=== PATIENT | male | born 1975 | race Two or more races ===

== ENCOUNTER 2023-11-23 21:21 | Emergency (ER) | payer OTHER, SELFPAY ==
[2023-11-23 21:30] VITALS: BP 118/73; PULSE 93; RESP 16; TEMP 36.7; O2SAT 97; BMI 25.4
[2023-11-23 22:19] LABS: MANUAL DIFF FLAG NO
[2023-11-23 22:29] LABS: Basophils Percent Auto 0.5 % (0-2); Eosinophils Absolute Auto 0.1 X10*3/uL (0.0-0.4); Eosinophils Percent Auto 0.9 % (0-4); Hematocrit 45.2 % (42.0-52.0); Hemoglobin 15.7 g/dl (14.0-18.0); Imm Gran Abs Auto 0.01 X10*3/uL (0.00-0.03); Imm Gran Pct Auto 0.1 % (0.0-0.4); Lymphocytes Absolute Auto 1.5 X10*3/uL (1.2-4.9); Lymphocytes Percent Auto 18.8 % (20-40); Mean Corpuscular HGB Conc 34.7 g/dl (31.0-36.0); Mean Corpuscular Hemoglobin 31.6 pg (27.0-33.0); Mean Corpuscular Volume 90.9 fL (80.0-98.0); Monocytes Absolute Auto 0.6 X10*3/uL (0.1-1.2); Monocytes Percent Auto 8.2 % (2-11); Neutrophils Absolute Auto 5.5 x10*3/uL (2.0-8.3); Neutrophils Percent Auto 71.5 % (45-73); Platelet Count 192 X10*3/uL (160-400); Red Blood Count 4.97 X10*6/uL (4.60-5.80); Red Cell Distribution Width 13.3 % (11.0-16.0); White Blood Count 7.7 X10*3/uL (4.8-10.8)
[2023-11-23 22:35] LABS: Anion Gap 13 (12-20); Blood Urea Nitrogen 15 mg/dL (9-16); Calcium 9.2 mg/dL (8.4-10.2); Carbon Dioxide 25 mmol/L (22-29); Chloride 109 mmol/L (96-108); Estimated Glomerular Filt Rate > 60; Glucose Random 92 mg/dL (60-115); Potassium 4.3 mmol/L (3.3-5.1); Sodium 143 mmol/L (135-145)
[2023-11-24 04:34] VITALS: BP 127/56; PULSE 75; RESP 20; TEMP 36.7; O2SAT 98
--- NOTE | 2023-11-24 05:03 | ED_ITS ---
HPI - Abdominal Pain General Chief Complaint: Abdominal Pain Stated Complaint: ? bleeding ulcer Time Seen by Provider: 11/24/23 04:52 Source: patient Mode of arrival: ambulatory Limitations: no limitations History of Present Illness HPI narrative: 47-year-old male with a history of bleeding ulcers who presents emergency department for evaluation of epigastric abdominal pain x2 days. Patient states that he takes Protonix 40 mg daily. He states that he ran out of his Protonix several days ago and is now having abdominal pain. He points to his epigastric area when asked to localize the pain. He states the pain is a sharp constant pain which is worse with eating. He states that he has noted some dark stools with his last dark stool being 4 days prior. He denies any blood per rectum. He denied fever, chills, weakness, nausea, vomiting or diarrhea. Related Data Previous Rx's Medication Instructions Recorded pantoprazole 40 mg tablet,delayed 40 mg PO DAILY #30 tabs 11/24/23 release (Protonix) Allergies Allergy/AdvReac Type Severity Reaction Status Date / Time seafood Allergy Hives Verified 11/23/23 21:33 Review of Systems Review of Systems Yes all other systems are reviewed and are negative [facility] Past Medical History [facility] Narrative: Past medical history: Bleeding ulcers. Social history: He states that he is currently living with his girlfriend who lives in [place] and he is from the [facility]. He does smoke cigarettes. He occasionally drinks alcohol. He denies drug use. Onset Date is defined in the Problem List Problems that require an onset date and time if occurred within 24 hrs of arrival to the ED Aortic Dissection and Rupture; Neurologic impairment; Cardiopulmonary Arrest; Endotracheal Intubation; Insertion or Replacement of Mechanical Circulatory Assist Device Social History Social History Alcohol intake: current Alcohol intake frequency: a few times a week Smoked in Last 30 Days: Yes Use of substances other than those prescribed or required for medical reasons: No Advance Directives: No Advance Directives Information Provided: No Physical Exam ED Vital Signs: Vital Signs - 24 hr 11/23/23 21:30 11/24/23 04:34 Temperature 98.0 F 98.0 F Pulse Rate 93 75 Respiratory Rate 16 20 Blood Pressure 118/73 127/56 L Pulse Oximetry 97 98 Oxygen Delivery Method Room Air Room Air BMI result Body Mass Index 25.4 Initial vital signs were normal. Exam: General: Awake, alert in no distress Head: Normocephalic, atraumatic EENT: PERRL, Lids normal, sclera normal, conjunctiva normal, nose normal , ears normal, throat without erythema or exudates Neck: Supple, no adenopathy, no trachea midline or C-spine tenderness Lung: breath sounds symmetric, no wheezing, rales or rhonchi Chest: symmetric movement, nontender Heart: regular rate and rhythm, normal S1, S2 no murmurs or rubs Abdomen: soft, moderate epigastric tenderness, no rebound, no voluntary or involuntary guarding Back: no vertebral tenderness, no CVAT Extremities: no deformities, moves all extremities symmetrically Neuro: Awake, alert, oriented, normal speech, cranial nerves intact, moves all extremities symmetrically Psych: Pleasant, cooperative Medical Decision Making Medical Decision Making MDM Narrative: 47-year-old male with a history of bleeding ulcers who is on Protonix 40 mg once a day who presents emergency department for evaluation of epigastric abdominal pain x2 days. The patient states he ran out of his Protonix 2 days prior. He has noted dark stools but no bloody stools. He had no other concerning symptoms. Vital signs were normal. Examination did reveal epigastric tenderness. Following evaluation was ordered: CBC BMP 05:09 My interpretation patient's laboratory evaluation is as follows: CBC was normal with an H&H of 15 and 45.2. BNP was normal. Patient's presentation is consistent with dyspepsia/gastritis. He was given Maalox 30 cc, viscous lidocaine 10 cc and 10 cc orally with improvement of his pain. I did refill his prescription for Protonix 40 mg once a day for 1 month with no refills. He was given printed and verbal instructions and discharged home. Differential Diagnosis Differential Diagnoses: The differential diagnosis associated with the presentation includes Differential diagnosis includes was not limited to gastritis, dyspepsia, peptic ulcer disease, upper GI bleed Admission/Observation Consideration of admission/observation: Escalation of care including admission/observation considered Lab Data [facility] Lab Attestation statement: I reviewed the patient's lab results. 11/23/23 22:15 11/23/23 22:15 Labs: Lab Results 11/23/23 Range/Units 22:15 WBC 7.7 (4.8-10.8) X10*3/uL RBC 4.97 (4.60-5.80) X10*6/uL Hgb 15.7 (14.0-18.0) g/dl Hct 45.2 (42.0-52.0) % MCV 90.9 (80.0-98.0) fL MCH 31.6 (27.0-33.0) pg MCHC 34.7 (31.0-36.0) g/dl RDW 13.3 (11.0-16.0) % Plt Count 192 (160-400) X10*3/uL MPV 10.0 (9.4-12.4) fL Immature Gran % (Auto) 0.1 (0.0-0.4) % Neut % (Auto) 71.5 (45-73) % Lymph % (Auto) 18.8 L (20-40) % [place] % (Auto) 8.2 (2-11) % Eos % (Auto) 0.9 (0-4) % Baso % (Auto) 0.5 (0-2) % Lymph # (Auto) 1.5 (1.2-4.9) X10*3/uL [place] # (Auto) 0.6 (0.1-1.2) X10*3/uL Eos # (Auto) 0.1 (0.0-0.4) X10*3/uL Baso # (Auto) 0.0 (0.0-0.2) X10*3/uL Abs Immat Gran (auto) 0.01 (0.00-0.03) X10*3/uL Absolute Neuts (auto) 5.5 (2.0-8.3) x10*3/uL Absolute Nucleated RBC 0.000 (0.0-0.012) X10*3/uL Nucleated RBC % (auto) 0.0 (0.0-0.2) /100WBC Sodium 143 (135-145) mmol/L Potassium 4.3 (3.3-5.1) mmol/L Chloride 109 H (96-108) mmol/L Carbon Dioxide 25 (22-29) mmol/L Anion Gap 13 (12-20) BUN 15 (9-16) mg/dL Creatinine 1.21 (0.5-1.4) mg/dL Estim Creat Clear Calc 77.0 Estimated GFR > 60 Random Glucose 92 (60-115) mg/dL Calcium 9.2 (8.4-10.2) mg/dL Prescription Management I considered prescription management with: Other (Proton pump inhibitor) Discharge Plan Discharge Clinical Impression: Gastritis Qualifiers: Chronicity: acute Gastritis bleeding: without bleeding Patient Disposition: Home, Self-Care Instructions: Gastritis (ED) Additional Instructions: Your blood work was normal. Your not anemic which is reassuring. Your pain is most likely caused by inflammation of your stomach (gastritis) Take Protonix 40 mg once a day for 1 month. Follow-up with your doctor in 2 days. Please return to the emergency department if your symptoms get worse or if you develop any symptoms that are concerning to you. Prescriptions: New pantoprazole [Protonix] 40 mg tablet,delayed release (DR/EC) 40 mg PO DAILY Qty: 30 0RF
[2023-11-24] MEDS: PHENobarb/Hyoscy/Atropine/Scop 10 ML ELIXIR PO (05:38)
[2023-11-24] MEDS: Magnesium Hydrox/Alum Hydrox 30 ML ORAL.SUSP PO (05:39)
[2023-11-24] MEDS: Lidocaine HCl Viscous 2 % 15 ML SOLUTION 10 ML PO (05:39)
[2023-11-24 05:44] VITALS: BP 121/64; PULSE 78; RESP 20; TEMP 36.7; O2SAT 96
== END 2023-11-24 05:51 | disposition home or self-care (01) ==
PROVIDERS: Emergency Provider Emergency Medicine Emergency Medical Services
DX: K29.70 Gastritis, unspecified, without bleeding (principal); R10.13 Epigastric pain; Z79.899 Other long term (current) drug therapy
CPT/HCPCS: 36415; 80048; 85025; 99283; 99284

== ENCOUNTER 2023-11-24 14:47 | Emergency (ER) | payer OTHER, SELFPAY ==
--- NOTE | ~2023-11-24 | XR_ITS ---
EXAMINATION: Right ankle and right foot. CLINICAL INDICATION: Right ankle giving out. TECHNIQUE: Right ankle 3 views and right foot 2 views. FINDINGS: Right foot: There is no visible fracture, dislocation or subluxation. The soft tissues are normal. Right ankle: There is no visible acute fracture or dislocation. The ankle mortise and subtalar joints are normal. There is a small calcaneal heel and retrocalcaneal enthesophytes. XR/XR foot RT min 3V IMPRESSION: Unremarkable right foot exam. Small calcaneal heel and retrocalcaneal enthesophyte.
--- NOTE | ~2023-11-24 | XR_ITS ---
EXAMINATION: Right ankle and right foot. CLINICAL INDICATION: Right ankle giving out. TECHNIQUE: Right ankle 3 views and right foot 2 views. FINDINGS: Right foot: There is no visible fracture, dislocation or subluxation. The soft tissues are normal. Right ankle: There is no visible acute fracture or dislocation. The ankle mortise and subtalar joints are normal. There is a small calcaneal heel and retrocalcaneal enthesophytes. XR/XR ankle RT min 3V IMPRESSION: Unremarkable right foot exam. Small calcaneal heel and retrocalcaneal enthesophyte.
[2023-11-24 15:16] VITALS: BP 104/66; PULSE 94; RESP 18; TEMP 36.8; O2SAT 97; BMI 25.2
--- NOTE | 2023-11-24 15:16 | ED.GENADULT ---
HPI - General Adult General Chief complaint: Extremity Injury, Lower Stated complaint: r ankle pain keeps giving out Time Seen by Provider: 11/24/23 15:28 Source: patient Mode of arrival: ambulatory Limitations: no limitations History of Present Illness HPI narrative: 47 year-old assigned at male presents to emergency department with a complaint of right ankle pain and instability for the last 2 years. He reports that he rolled his ankle this morning prompting his visit. He states his ankle pain is intermittent, worsens with walking, and is relieved by rest. He uses an MORE bandage to stabilize his ankle. He reports that he has seen an orthopedic doctor in [place] for this ankle issue in the past. He reports no traumatic history or falls. The patient denies fever, night sweats, chills, loss of vision, vision changes, double vision, blurry vision, lightheadedness, dizziness, chest pain, palpitations, shortness of breath, trouble breathing, cough, abdominal pain, nausea, vomiting, diarrhea, melena and hematochezia, changes in bowel movements, burning with urination, urinary frequency, and changes in urination. Onset (ago): year(s) (2 years) Location: lower extremity (right ankle) Pain Consistency: intermittent Relieving factors: rest Exacerbating factors: movement Associated symptoms: denies other symptoms Treatments prior to arrival: other (more bandage) Related Data Previous Rx's Medication Instructions Recorded pantoprazole 40 mg tablet,delayed 40 mg PO DAILY #30 tabs 11/24/23 release (Protonix) Allergies Allergy/AdvReac Type Severity Reaction Status Date / Time seafood Allergy Hives Verified 11/24/23 15:15 Review of Systems Constitutional: Constitutional: Reports no additional constitutional complaints, Denies chills, Denies fever(s) and Denies night sweats Eyes: Eyes: Reports no additional eye complaints, Denies blurry vision, Denies change in vision, Denies diplopia, Denies eye discharge, Denies loss of vision and Denies eye pain ENT: Denies dizziness Cardiovascular: Cardiovascular: Reports no additional cardiovascular complaints, Denies chest pain, Denies lightheadedness, Denies Loss of Consciousness and Denies dyspnea Respiratory: Respiratory: Reports no additional respiratory complaints and Denies dyspnea Gastrointestinal: Gastrointestinal: Reports no additional gastrointestinal complaints, Denies abdominal pain, Denies melena, Denies hematochezia, Denies change in bowel habits and Denies change in stool character Genitourinary: Genitourinary: Reports no additional male genitourinary complaints, Denies hematuria, Denies oliguria, Denies difficulty urinating, Denies dysuria, Denies urinary frequency, Denies urinary hesitancy, Denies urinary incontinence and Denies urinary urgency Musculoskeletal: Musculoskeletal: Reports no additional musculoskeletal complaints, Denies numbness and Denies tingling Comments: right ankle pain and instability Neurologic: Denies dizziness, Denies loss of vision, Denies numbness and Denies tingling Psychiatric: Psychiatric: Reports no additional psychiatric complaints Endocrine: Endocrine: Reports no additional endocrine complaints Hematologic/Lymphatic: Hematologic/Lymphatic: Reports no additional hematologic/lymphatic complaints Allergic/Immunologic: Allergic/Immunologic: Reports no additional allergic/immunologic complaints PMFSH Past Medical History Attestation statement: The following information was validated with the patient. Source: old records reviewed and nursing notes reviewed Onset Date is defined in the Problem List Problems that require an onset date and time if occurred within 24 hrs of arrival to the ED Aortic Dissection and Rupture; Neurologic impairment; Cardiopulmonary Arrest; Endotracheal Intubation; Insertion or Replacement of Mechanical Circulatory Assist Device Social History Social History Alcohol intake: current Alcohol intake frequency: a few times a week Advance Directives: No Advance Directives Information Provided: No Physical Exam ED Vital Signs: Vital Signs - 24 hr 11/24/23 15:16 11/24/23 17:02 Temperature 98.2 F 98.1 F Pulse Rate 94 90 Respiratory Rate 18 20 Blood Pressure 104/66 127/68 Pulse Oximetry 97 97 Oxygen Delivery Method Room Air Room Air BMI result Body Mass Index 25.2 Const General: cooperative, no acute distress, alert and awake Nutritional Appearance: well nourished Orientation/consciousness: patient oriented x3 Limitations: no limitations HENMT Head: Yes normal to inspection and Yes atraumatic Ears: hearing grossly normal bilaterally and external ears normal General nose exam: Normal external nose present, no nasal discharge noted and no epistaxis Face and sinus: Yes normal facial exam, No abrasion and No laceration Mouth: Normal oral and palatal mucosa present, no drooling and no muffled voice Eyes General: appearance normal, both eyes and all related structures Periorbital: periorbital findings normal Eyelids: Yes eyelids normal Conjunctivae: conjunctivae normal Pupils: Equal, round and reactive pupils present EOM: EOMs intact bilaterally Neck Neck: Yes normal visual inspection, Yes full ROM and Yes no lymphadenopathy Chest Chest palpation & inspection: normal inspection of the chest Resp Effort & Inspection: normal respiratory effort and able to speak in complete sentences GI Inspection: Yes normal to inspection Neuro General: patient oriented x3 and moves all extremities Cranial nerves: Yes Equal, round and reactive pupils present Cognition (Neuro): normal cognition Motor exam (neuro): 5/5 motor strength present throughout Sensory Exam: Normal double simultaneous stimulation for sensation Coordination: [id number] test normal Extrem General: Yes normal to inspection, Yes full ROM and Yes capillary refill normal Psych Appearance: grossly normal Mental Status: mental status grossly normal Affect: normal affect Attitude: cooperative Thought process: Normal thought process present Thought content: Normal thought content present Insight: Good insight present (Psych) Course Course Course Narrative: RME:?47 yo male here w/ right ankle pain x2-3 years. Reports his ankle began giving out this morning after being discharged from our facility. [place] [facility] with diagnosis of gastritis. Denies numbness/tingling/weakness of extremity. no injury/trauma. reports walking daily. +ambulating w/ steady gait plan for xrays Full HPI, ROS and PE to be performed by the primary ED provider. Procedures Orthopedic Splinting/Casting Injury #1: Side: right Lower Extremity Injury Location: ankle Lower Extremity Immobilizer: boot orthosis Medical Decision Making Medical Decision Making MDM Narrative: Patient is a 47 year old assigned male at with a history of chronic right ankle pain / instability presenting to the emergency department today with right ankle pain. Patient's physical exam was unremarkable. Patient's right foot and ankle x-rays showed no acute process. I explained my physical exam findings as well as all test results to the patient. I answered all questions asked by the patient. Patient's right ankle was placed in a walking boot, without incident. Patient's PMS was intact prior to and after boot placement. I stressed the importance of the patient taking his medication as prescribed. I stressed the importance of the patient following up with his primary care provider and his orthopedic provider. I stressed the importance of the patient returning to the emergency department immediately if his symptoms were to worsen or if he were to develop any dizziness, shortness of breath, difficulty breathing, chest pain, blurry vision, loss of vision, nausea, vomiting, abdominal pain, fever, chills, back pain, or any other complaints. Patient verbalized agreement and understanding with this treatment plan and discharge. Differential Diagnosis Differential Diagnoses: The differential diagnosis associated with the presentation includes Right ankle pain Right ankle instability Right ankle strain Right ankle sprain Admission/Observation Consideration of admission/observation: Escalation of care including admission/observation considered Patient would have been admitted to the hospital had his work up had any findings where hospital admission was appropriate and his clinical presentation warranted hospital admission. Independent Interpretation I performed an independent interpretation of an: Plain X-Ray Interpretation: My interpretation is in agreement with the radiologist's impression of these imaging studies. EXAMINATION: Right ankle and right foot. CLINICAL INDICATION: Right ankle giving out. TECHNIQUE: Right ankle 3 views and right foot 2 views. FINDINGS: Right foot: There is no visible fracture, dislocation or subluxation. The soft tissues are normal. Right ankle: There is no visible acute fracture or dislocation. The ankle mortise and subtalar joints are normal. There is a small calcaneal heel and retrocalcaneal enthesophytes. XR/XR foot RT min 3V IMPRESSION: Unremarkable right foot exam. Small calcaneal heel and retrocalcaneal enthesophyte. Dictated By: Esdras العلي MD Signed By: Electronically signed by Esdras العلي MD 11/24/23 3274 Radiology Impression Discussion of test interpretation with radiology: I have reviewed the radiologist's reading. Discharge Plan Discharge Clinical Impression: Ankle sprain, Ankle instability Patient Disposition: Home, Self-Care Instructions: Ankle Sprain (DC) Additional Instructions: Follow up with your primary care provider and an orthopedic provider. Return to the emergency department immediately if your symptoms worsen or if you develop any dizziness, shortness of breath, difficulty breathing, chest pain, blurry vision, loss of vision, nausea, vomiting, abdominal pain, fever, chills, back pain, or any other complaints. Prescriptions: No Action pantoprazole [Protonix] 40 mg tablet,delayed release (DR/EC) 40 mg PO DAILY Qty: 30 0RF Referrals: [facility] [place] Family Medicine [Provider Group] (Call to establish and follow up with a primary care provider. If you already have a primary care provider, please follow up with them.) [facility] [place] Primary [facility], [facility] [Provider Group] (Call to establish and follow up with a primary care provider. If you already have a primary care provider, please follow up with them.) [facility] [place] Primary [facility],[place] [Provider Group] (Call to establish and follow up with a primary care provider. If you already have a primary care provider, please follow up with them.) [facility] [place] [facility] [Provider Group] (Call to establish and follow up with an orthopedic provider.) Interventions: ED Discharge Assessment Last Done: 11/24/23 17:19 Discharge Date/Time: 11/24/23 17:19 Print Language: Polish
[2023-11-24 17:02] VITALS: BP 127/68; PULSE 90; RESP 20; TEMP 36.7; O2SAT 97
== END 2023-11-24 17:19 | disposition home or self-care (01) ==
PROVIDERS: Emergency Provider Emergency Medicine
DX: S93.401A Sprain of unspecified ligament of right ankle, initial encounter (principal); M25.371 Other instability, right ankle; M25.571 Pain in right ankle and joints of right foot; W01.0XXA Fall on same level from slipping, tripping and stumbling without subsequent striking against object, initial encounter; Y93.9 Activity, unspecified; Y92.9 Unspecified place or not applicable; Y99.9 Unspecified external cause status
CPT/HCPCS: 29515; 73610; 73630; 99283

== ENCOUNTER 2023-11-26 15:54 | Emergency (ER) | payer OTHER, SELFPAY ==
--- NOTE | ~2023-11-26 | XR_ITS ---
EXAMINATION: XR LUMBOSACRAL SPINE CLINICAL INFORMATION: Lumbar spondylosis, tenderness COMPARISON: None available. TECHNIQUE: Three views of the lumbosacral spine. FINDINGS: There are 5 not ribs bearing vertebral bodies and lumbar spine with straightening of lumbar lordosis. Vertebral bodies are well aligned and intervertebral discs are preserved. There is minimal spurring of the endplates of L5 and L4. Soft tissues unremarkable. There is no spondylolysis or listhesis. XR/XR lumbar spine 2-3V IMPRESSION: Minimal degenerative changes
--- NOTE | 2023-11-26 15:59 | ED_ITS ---
HPI - General Adult General Chief complaint: Back Pain/Injury Stated complaint: back spasms right side Time Seen by Provider: 11/26/23 16:51 Source: patient Mode of arrival: ambulatory Limitations: no limitations History of Present Illness HPI narrative: Patient is a 47 year old assigned male at with no reported medical history presenting to the emergency department today with a low back muscle spasm. Patient states that he intermittently has a spasm in his low back that causes pain and this has been happening consistently over the last 4 months. Patient denies any dizziness, lightheadedness, abdominal pain, nausea, vomiting, fever, chills, blurry vision, double vision, loss of vision, chest pain, difficulty breathing, shortness of breath, night sweats, pain with urination, increased urinary frequency, increased urinary urgency, blood in his urine or stool, syncope or a near syncopal episode, recent trauma or falls, bowel incontinence, bladder incontinence, bowel retention, bladder retention, or any other complaints at this time. Onset (ago): month(s) (4) Location: back Severity: mild Severity scale (1-10): 3 Pain Consistency: intermittent Relieving factors: none Exacerbating factors: none Associated symptoms: denies other symptoms Treatments prior to arrival: none Related Data Previous Rx's Medication Instructions Recorded pantoprazole 40 mg tablet,delayed 40 mg PO DAILY #30 tabs 11/24/23 release (Protonix) cyclobenzaprine 5 mg tablet 5 mg PO TID PRN muscle spasm 7 11/26/23 days #21 tabs Allergies Allergy/AdvReac Type Severity Reaction Status Date / Time seafood Allergy Hives Verified 11/26/23 16:37 Review of Systems Constitutional: Constitutional: Reports no additional constitutional complaints, Denies chills, Denies fever(s) and Denies night sweats Eyes: Eyes: Reports no additional eye complaints, Denies blurry vision, Denies change in vision, Denies diplopia, Denies eye discharge, Denies loss of vision and Denies eye pain ENT: Denies dizziness Cardiovascular: Cardiovascular: Reports no additional cardiovascular complaints, Denies chest pain, Denies lightheadedness, Denies Loss of Consciousness and Denies dyspnea Respiratory: Respiratory: Reports no additional respiratory complaints and Denies dyspnea Gastrointestinal: Gastrointestinal: Reports no additional gastrointestinal complaints, Denies abdominal pain, Denies melena, Denies hematochezia, Denies change in bowel habits and Denies change in stool character Genitourinary: Genitourinary: Reports no additional male genitourinary complaints, Denies hematuria, Denies oliguria, Denies difficulty urinating, Denies dysuria, Denies urinary frequency, Denies urinary hesitancy, Denies urinary incontinence and Denies urinary urgency Musculoskeletal: Musculoskeletal: Reports no additional musculoskeletal complaints, Reports back pain (intermittent), Denies numbness and Denies tingling Neurologic: Denies dizziness, Denies loss of vision, Denies numbness and Denies tingling Psychiatric: Psychiatric: Reports no additional psychiatric complaints Endocrine: Endocrine: Reports no additional endocrine complaints Hematologic/Lymphatic: Hematologic/Lymphatic: Reports no additional hematologic/lymphatic complaints Allergic/Immunologic: Allergic/Immunologic: Reports no additional allergic/immunologic complaints PMFSH Past Medical History Attestation statement: The following information was validated with the patient. Source: old records reviewed and nursing notes reviewed Onset Date is defined in the Problem List Problems that require an onset date and time if occurred within 24 hrs of arrival to the ED Aortic Dissection and Rupture; Neurologic impairment; Cardiopulmonary Arrest; Endotracheal Intubation; Insertion or Replacement of Mechanical Circulatory Assist Device Social History Social History Alcohol intake: current Alcohol intake frequency: a few times a week Advance Directives: No Advance Directives Information Provided: No Physical Exam ED Vital Signs: Vital Signs - 24 hr 11/26/23 16:33 Temperature 98.0 F Pulse Rate 65 Respiratory Rate 16 Blood Pressure 132/95 H Pulse Oximetry 98 Oxygen Delivery Method Room Air BMI result Body Mass Index 27.1 Const General: cooperative, no acute distress, alert and awake Nutritional Appearance: well nourished Orientation/consciousness: patient oriented x3 Limitations: no limitations HENMT Head: Yes normal to inspection and Yes atraumatic Ears: hearing grossly normal bilaterally and external ears normal General nose exam: Normal external nose present, no nasal discharge noted and no epistaxis Face and sinus: Yes normal facial exam, No abrasion and No laceration Mouth: Normal oral and palatal mucosa present, no drooling and no muffled voice Eyes General: appearance normal, both eyes and all related structures Periorbital: periorbital findings normal Eyelids: Yes eyelids normal Conjunctivae: conjunctivae normal Pupils: Equal, round and reactive pupils present EOM: EOMs intact bilaterally Neck Neck: Yes normal visual inspection, Yes full ROM and Yes no lymphadenopathy Chest Chest palpation & inspection: normal inspection of the chest Resp Effort & Inspection: normal respiratory effort and able to speak in complete sentences GI Inspection: Yes normal to inspection General: Yes no CVA tenderness Back/Spine/Pelvis Back: no CVA tenderness Cervical Spine: normal cervical lordosis and cervical ROM normal Thoracic/Lumbar Spine: thoracic and lumbar spine normal to inspection Neuro General: patient oriented x3 and moves all extremities Cranial nerves: Yes Equal, round and reactive pupils present Cognition (Neuro): normal cognition Motor exam (neuro): 5/5 motor strength present throughout Sensory Exam: Normal double simultaneous stimulation for sensation Coordination: [id number] test normal Extrem General: Yes normal to inspection, Yes full ROM and Yes capillary refill normal Psych Appearance: grossly normal Mental Status: mental status grossly normal Affect: normal affect Attitude: cooperative Thought process: Normal thought process present Thought content: Normal thought content present Insight: Good insight present (Psych) Course Course Course Narrative: RME: 47 yo male here w/?right low back pain/ spasms x3-4 months, worse at night. 4/10 pain at present. has not been taking anything at home for this. denies injury or trauma. denies bowel/bladder incontinence or retention, saddle anesthesia. denies IVDU. ttp of midline lumbar spine. 2+ patellar dtrs. sensation intact throughout. nv intact distally. plan for xr Full HPI, ROS and PE to be performed by the primary ED provider. Medications Administered Discontinued Medications Generic Name Dose Route Start Last Admin Trade Name Delfino PRN Reason Stop Dose Admin Cyclobenzaprine HCl 5 mg 11/26/23 16:52 11/26/23 16:59 Cyclobenzaprine Hcl 5 Mg Tablet PO 11/26/23 16:53 5 mg ONCE ONE Administration Medical Decision Making Medical Decision Making [facility] Narrative: Patient is a 47 year old assigned male at with no reported medical history presenting to the emergency department today with intermittent low back pain. Patient's physical exam was unremarkable. Patient's lumbar x-ray showed no acute process. I explained my physical exam findings as well as all test results to the patient. I answered all questions asked by the patient. I stressed the importance of the patient taking his medication as prescribed. I stressed the importance of the patient following up with his primary care provider. I s tressed the importance of the patient returning to the emergency department immediately if his symptoms were to worsen or if he were to develop any dizziness, shortness of breath, difficulty breathing, chest pain, blurry vision, loss of vision, nausea, vomiting, abdominal pain, fever, chills, back pain, or any other complaints. Patient verbalized agreement and understanding with this treatment plan and discharge. Differential Diagnosis Differential Diagnoses: The differential diagnosis associated with the presentation includes Back pain Muscle spasm Admission/Observation Consideration of admission/observation: Escalation of care including admission/observation considered Patient would have been admitted to the hospital had his work up had any findings where hospital admission was appropriate and his clinical presentation warranted hospital admission. Independent Interpretation I performed an independent interpretation of an: Plain X-Ray Interpretation: My interpretation is in agreement with the radiologist's impression of this imaging study. EXAMINATION: XR LUMBOSACRAL SPINE CLINICAL INFORMATION: Lumbar spondylosis, tenderness COMPARISON: None available. TECHNIQUE: Three views of the lumbosacral spine. FINDINGS: There are 5 not ribs bearing vertebral bodies and lumbar spine with straightening of lumbar lordosis. Vertebral bodies are well aligned and intervertebral discs are preserved. There is minimal spurring of the endplates of L5 and L4. Soft tissues unremarkable. There is no spondylolysis or listhesis. XR/XR lumbar spine 2-3V IMPRESSION: Minimal degenerative changes Dictated By: Caren Josue MD Signed By: Electronically signed by Caren Josue MD 11/26/23 0661 Radiology Impression Discussion of test interpretation with radiology: I have reviewed the radiologist's reading. Prescription Management I considered prescription management with: Pain Medication (patient prescribed pain medication) Discharge Plan Discharge Clinical Impression: Back spasm Patient Disposition: Home, Self-Care Instructions: Back Pain (ED) Additional Instructions: Follow up with your primary care provider. Return to the emergency department immediately if your symptoms worsen or if you develop any dizziness, shortness of breath, difficulty breathing, chest pain, blurry vision, loss of vision, nausea, vomiting, abdominal pain, fever, chills, back pain, or any other complaints. Prescriptions: New cyclobenzaprine 5 mg tablet 5 mg PO TID PRN (Reason: muscle spasm) 7 Days Qty: 21 0RF No Action pantoprazole [Protonix] 40 mg tablet,delayed release (DR/EC) 40 mg PO DAILY Qty: 30 0RF Referrals: [facility] Family Medicine [Provider Group] (Call to establish and follow up with a primary care provider. If you already have a primary care provider, please follow up with them.) [facility] [Provider Group] (Call to establish and follow up with a primary care provider. If you already have a primary care provider, please follow up with them.) [facility] [Provider Group] (Call to establish and follow up with a primary care provider. If you already have a primary care provider, please follow up with them.) Interventions: ED Discharge Assessment Last Done: 11/26/23 17:07 Discharge Date/Time: 11/26/23 17:08 Print Language: Polish
[2023-11-26 16:33] VITALS: BP 132/95; PULSE 65; RESP 16; TEMP 36.7; O2SAT 98; BMI 27.1
[2023-11-26] MEDS: Cyclobenzaprine HCl 5 MG TABLET PO (16:59)
== END 2023-11-26 17:08 | disposition home or self-care (01) ==
PROVIDERS: Emergency Provider Emergency Medicine Emergency Medical Services
DX: M62.830 Muscle spasm of back (principal); M54.50 Low back pain, unspecified
CPT/HCPCS: 72100; 99283

== ENCOUNTER 2023-11-27 22:26 | Emergency (ER) | payer OTHER, SELFPAY ==
[2023-11-27 22:27] VITALS: BP 120/72; PULSE 83; RESP 16; TEMP 37.2; O2SAT 98; BMI 26.5
[2023-11-27 22:57] LABS: MANUAL DIFF FLAG NO
[2023-11-27 22:58] LABS: Basophils Percent Auto 0.5 % (0-2); Eosinophils Absolute Auto 0.1 X10*3/uL (0.0-0.4); Eosinophils Percent Auto 0.7 % (0-4); Hematocrit 44.8 % (42.0-52.0); Hemoglobin 15.3 g/dl (14.0-18.0); Imm Gran Abs Auto 0.02 X10*3/uL (0.00-0.03); Imm Gran Pct Auto 0.2 % (0.0-0.4); Lymphocytes Absolute Auto 2.4 X10*3/uL (1.2-4.9); Lymphocytes Percent Auto 28.2 % (20-40); Mean Corpuscular HGB Conc 34.2 g/dl (31.0-36.0); Mean Corpuscular Hemoglobin 30.9 pg (27.0-33.0); Mean Corpuscular Volume 90.5 fL (80.0-98.0); Mean Platelet Volume 9.7 fL (9.4-12.4); Monocytes Absolute Auto 0.6 X10*3/uL (0.1-1.2); Monocytes Percent Auto 7.3 % (2-11); Neutrophils Absolute Auto 5.4 x10*3/uL (2.0-8.3); Neutrophils Percent Auto 63.1 % (45-73); Platelet Count 192 X10*3/uL (160-400); Red Blood Count 4.95 X10*6/uL (4.60-5.80); Red Cell Distribution Width 13.1 % (11.0-16.0); White Blood Count 8.5 X10*3/uL (4.8-10.8)
[2023-11-27 23:12] LABS: Alanine Aminotransferase 21 U/L (0-40); Alkaline Phosphatase 58 U/L (39-117); Anion Gap 12 (12-20); Aspartate Amino Transferase 25 U/L (5-37); Bilirubin Total 0.5 mg/dL (0.0-1.0); Blood Urea Nitrogen 16 mg/dL (9-16); Calcium 9.3 mg/dL (8.4-10.2); Carbon Dioxide 30 mmol/L (22-29); Chloride 107 mmol/L (96-108); Creatinine Clr Calc Pharmacy 89.1; Estimated Glomerular Filt Rate > 60; Ethanol < 10 mg/dL; Glucose Random 122 mg/dL (60-115); Sodium 145 mmol/L (135-145); Total Protein 6.6 g/dL (6.5-8.0)
--- NOTE | 2023-11-28 00:37 | PC.NURSE ---
pt not in waiting area at this time.
--- NOTE | 2023-11-28 00:48 | PC.NURSE ---
pt denies si or hi, pt states he just wants to talk with someone due to its the anniversary of a loved one who years ago.
[2023-11-28 01:41] VITALS: BP 101/68; PULSE 67; RESP 16; TEMP 36.6; O2SAT 97
--- NOTE | 2023-11-28 01:43 | MHC.EDTECH ---
This pct just assumed care of Patient ,Pt was meter changes records clerk into (green gown and blue pants ) ,vitals taken ,Patient belongings are locked up in Pod locker # 4 ,Patient had 2 knifes that are locked up in Security .
--- NOTE | 2023-11-28 03:02 | MHC.EDTECH ---
Patient not able to give urine sample at this time .
[2023-11-28 04:00] VITALS: BP 103/61; PULSE 64; RESP 16; TEMP 36.8; O2SAT 97
--- NOTE | 2023-11-28 04:58 | PC.NURSE ---
Patient is alert and oriented x3, VSS. Patient requested and provided a cell phone to call his girlfriend. Patient reports chronic generalized pain d /t muscle spasms. Patient also endorses pain in right foot. Patient wears walking boot to right ankle for support and pain management. Patient denies SI//HI, not in acute distress. Medication reconciliation compelled, call hendricks within patient's reach.
--- NOTE | 2023-11-28 05:07 | MHC.EDTECH ---
Patient woke up asked to use a Phone to call his ,Fluids offer ,drank 240 ml cranberry juice ,Patient said he not able to give urine sample at this time .
--- NOTE | 2023-11-28 05:16 | ED_ITS ---
HPI - General Adult General Chief complaint: Psychiatric Symptoms Stated complaint: crisis Time Seen by Provider: 11/28/23 02:23 History of Present Illness HPI narrative: The patient is a 47-year-old male who says he has only been in this area for a very brief period of time. He is here because of his fiancee. The patient says that he is originally from [place] although he has lived on [address]. He says he does not know [place]. The patient has had 3 emergency room visits in the last 4 days prior to this visit. The patient was seen here on FridayNovember 24 complaining of abdominal pain that he attributed to not having his pantoprazole medication. He was prescribed pantoprazole. He returned the same day complaining of worsening chronic right ankle pain. He was given an orthopedic boot. He then returned on FridayNovember 26 complaining of low back pain and was prescribed cyclobenzaprine. Tonight the patient came to the emergency room because he was apparently very emotional at home. He says that he thinks a lot about his brother who was shot and murdered 3 years ago. He is very upset that the person who was convicted of the murder was given only a 10 year sentence. He has been feeling emotional and angry and tearful. The patient has been psychiatrically hospitalized in the past. He says that he has not certain when he was last hospitalized but he believes that he was sent to a psychiatric hospital from the emergency room at [facility] within the last couple of years. He says he does not currently take any psychiatric medications. The patient denies having done anything to harm himself. He feels extremely sad however. Related Data Previous Rx's Medication Instructions Recorded pantoprazole 40 mg tablet,delayed 40 mg PO DAILY #30 tabs 11/24/23 release (Protonix) cyclobenzaprine 5 mg tablet 5 mg PO TID PRN muscle spasm 7 11/26/23 days #21 tabs Allergies Allergy/AdvReac Type Severity Reaction Status Date / Time seafood Allergy Hives Verified 11/27/23 22:34 Review of Systems 2 Review of Systems: Yes all other systems are reviewed and are negative [facility] Social History Social History Alcohol intake: current Alcohol intake frequency: holidays/special occasions only Alcohol type: beer, wine and hard liquor Smoked in Last 30 Days: Yes Use of substances other than those prescribed or required for medical reasons: No Advance Directives: No Advance Directives Information Provided: No Physical Exam ED Vital Signs: Vital Signs - 24 hr 11/27/23 22:27 11/28/23 01:41 11/28/23 04:00 Temperature 98.9 F 97.8 F 98.2 F Pulse Rate 83 67 64 Respiratory Rate 16 16 16 Blood Pressure 120/72 101/68 103/61 Pulse Oximetry 98 97 97 Oxygen Delivery Method Room Air Room Air Room Air 11/28/23 05:24 Temperature 97.9 F Pulse Rate 60 Respiratory Rate 16 Blood Pressure 100/62 Pulse Oximetry 96 Oxygen Delivery Method Room Air BMI result Body Mass Index 26.5 Const Other: The patient was awake and alert. He was talkative and spoke at great length about the murder of his brother. He did not seem in acute distress or acutely medically ill. HENMT Other: The face is symmetrical. ?Mucous membranes moist. Eyes Other: Pupils are round equal, conjunctivae are clear, extraocular movements intact Neck Neck: Yes no JVD Resp Effort & Inspection: normal respiratory effort Auscultation: clear to auscultation bilaterally Cardio Rate: regular rate Rhythm: regular rhythm Heart sounds: S1 normal heart sound present and S2 normal heart sound present GI Other: Abdomen is flat, soft, and nontender Skin Other: Skin is dry and unremarkable Neuro Other: Patient is awake and alert. Speech is clear. Face is symmetrical. Eye movements normal. Moving his extremities normally. Night. Extrem Other: The patient is wearing an orthopedic boot on his foot and lower leg Psych Other: The patient perseverated about his brother's and other stressors of his life. Medical Decision Making Medical Decision Making MDM Narrative: The patient is a 47-year-old male who presents primarily for emotional complaints. He is new in this area and feels out of place. He also perseverates a great deal about the murder of his brother 3 years ago. He presented voluntarily and is requesting to speak with crisis. He seems medically clear for a crisis evaluation. He will be signed out to the oncoming emergency team at change of shift this morning pending a crisis evaluation. Lab Data 11/27/23 22:54 11/27/23 22:54 Labs: Lab Results 11/27/23 Range/Units 22:54 WBC 8.5 (4.8-10.8) X10*3/uL RBC 4.95 (4.60-5.80) X10*6/uL Hgb 15.3 (14.0-18.0) g/dl Hct 44.8 (42.0-52.0) % MCV 90.5 (80.0-98.0) fL MCH 30.9 (27.0-33.0) pg MCHC 34.2 (31.0-36.0) g/dl RDW 13.1 (11.0-16.0) % Plt Count 192 (160-400) X10*3/uL MPV 9.7 (9.4-12.4) fL Immature Gran % (Auto) 0.2 (0.0-0.4) % Neut % (Auto) 63.1 (45-73) % Lymph % (Auto) 28.2 (20-40) % Meeker % (Auto) 7.3 (2-11) % Eos % (Auto) 0.7 (0-4) % Baso % (Auto) 0.5 (0-2) % Lymph # (Auto) 2.4 (1.2-4.9) X10*3/uL Meeker # (Auto) 0.6 (0.1-1.2) X10*3/uL Eos # (Auto) 0.1 (0.0-0.4) X10*3/uL Baso # (Auto) 0.0 (0.0-0.2) X10*3/uL Abs Immat Gran (auto) 0.02 (0.00-0.03) X10*3/uL Absolute Neuts (auto) 5.4 (2.0-8.3) x10*3/uL Absolute Nucleated RBC 0.000 (0.0-0.012) X10*3/uL Nucleated RBC % (auto) 0.0 (0.0-0.2) /100WBC Sodium 145 (135-145) mmol/L Potassium 4.0 (3.3-5.1) mmol/L Chloride 107 (96-108) mmol/L Carbon Dioxide 30 H (22-29) mmol/L Anion Gap 12 (12-20) BUN 16 (9-16) mg/dL Creatinine 1.08 (0.5-1.4) mg/dL Estim Creat Clear Calc 89.1 Estimated GFR > 60 Random Glucose 122 H (60-115) mg/dL Calcium 9.3 (8.4-10.2) mg/dL Total Bilirubin 0.5 (0.0-1.0) mg/dL AST 25 (5-37) U/L ALT 21 (0-40) U/L Alkaline Phosphatase 58 (39-117) U/L Total Protein 6.6 (6.5-8.0) g/dL Albumin 4.0 (3.5-5.0) g/dL Ethyl Alcohol < 10 mg/dL Discharge Plan Discharge Clinical Impression: Depression Patient Disposition: Still a Patient Prescriptions: No Action pantoprazole [Protonix] 40 mg tablet,delayed release (DR/EC) 40 mg PO DAILY Qty: 30 0RF cyclobenzaprine 5 mg tablet 5 mg PO TID PRN (Reason: muscle spasm) 7 Days Qty: 21 0RF Interventions: Wilkin-Suicide Risk Severity Scale Last Done: 11/28/23 01:30
[2023-11-28 05:24] VITALS: BP 100/62; PULSE 60; RESP 16; TEMP 36.6; O2SAT 96
--- NOTE | 2023-11-28 07:47 | PC.NURSE ---
assumed care of pt at 0700. pt a&o x4, pleasant, calm, and cooperative. pt appears to be anxious this morning, sts that he is upset about his brother that was killed 3 years ago. pt sts he has a lot going on in his life right now. pt denies SI/HI. ate breakfast but asking for more food. sts the tray was a tease . call hendricks within reach. rr even/unlabored. plan of care ongoing.
[2023-11-28 09:36] LABS: Amphetamine Screen Urine Not Detected (Not Detect); Barbiturates, Urine POSITIVE (Not Detect); Benzodiazepines Screen Urine Not Detected (Not Detect); Cannabinoid Screen Urine Not Detected (Not Detect); Cocaine Screen Urine Not Detected (Not Detect); Fentanyl, urine Not Detected (Not Detect); Opiate Screen Urine Not Detected (Not Detect); Phencyclidine Screen Urine Not Detected (Not Detect)
--- NOTE | 2023-11-28 10:50 | PC.NURSE ---
Moved to 6H, 1:[address], denies pain or discomfort. at bedside
--- NOTE | 2023-11-28 12:27 | PC.NURSE ---
Patient requesting to speak to care team, stating that he think hes wants to leave, Stating he needs to smoke and is hungry. Offered food/nicotine patch, patient declined stating he doesn't want to stop smoking. Care team called stating they will come speak to patient
--- NOTE | 2023-11-28 12:49 | PC.NURSE ---
Seen by care team, patient is not SI, HI. Patient requesting to go home and states he is feeling fine. Reviewed discharge paperwork with patient who verbalized understanding of how to access resources should he need them.
== END 2023-11-28 13:20 | disposition home or self-care (01) ==
PROVIDERS: Emergency Provider Emergency Medicine
DX: F33.1 Major depressive disorder, recurrent, moderate (principal); F43.9 Reaction to severe stress, unspecified; Z79.899 Other long term (current) drug therapy
CPT/HCPCS: 36415; 80053; 80307; 85025; 99285; S9485

== ENCOUNTER 2023-12-09 10:29 | Outpatient (AMB) | payer OTHER, SELFPAY ==
--- NOTE | 2023-12-09 10:38 | MHC.OFFVIS ---
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 Patient has a history of upper and lower GI bleed over 5 years ago or so when he was living in [place] in the long-term. Patient had upper endoscopy and colonoscopy. Unsure of the results, however he was placed on medications and his symptoms got better. Recently patient ran out of his pantoprazole and was seen in the ER for epigastric pain. Patient denies hemoptysis or nausea. Reports epigastric pain postprandially. While in the ED patient was given GI cocktail with Maalox and viscous lidocaine with improvement. Patient had no leukocytosis. His H&H was normal. Was sent home with script for pantoprazole. Patient reports that he has been taking since he left ER. Some improvement but continues to have epigastric discomfort. Patient also reports postprandial abdominal bloating and loose stools. Patient is allergic to lactose and is taking lactate when he drinks milk. Patient is not following any particular diet. Patient denies any melena, hematochezia, unintentional weight loss or ribbon like stools. Patient denies any fever or chills. [facility] Social History Alcohol intake: current Alcohol intake frequency: holidays/special occasions only Alcohol type: beer, wine and hard liquor Review of Systems Const Denies weight gain and Denies weight loss ENT Reports no additional complaints, Denies dysphagia and Denies odynophagia Card Reports no additional complaints Resp Reports no additional complaints GI Reports abdominal pain (Epigastric), Denies belching, Denies melena, Reports bloating, Denies change in bowel habits, Denies dysphagia, Denies excessive flatus, Reports dyspepsia, Reports heartburn, Denies diarrhea, Reports loose stools, Denies nausea, Denies odynophagia and Denies vomiting Reports no additional complaints Musc Reports no additional complaints Neuro Reports no additional complaints Psych Reports no additional complaints Endo Reports no additional complaints Physical Exam Vital Signs: Last Vital Signs Pulse 96 12/09/23 10:39 BP 91/57 L 12/09/23 10:39 BMI result Body Mass Index 24.4 Const General: healthy appearing, no acute distress and well developed Nutritional Appearance: well nourished Orientation/consciousness: patient oriented x3 Resp Effort & Inspection: normal respiratory effort, able to speak in complete sentences, no tracheal deviation and symmetric chest movement Auscultation: clear to auscultation bilaterally Cardio Rate: regular rate GI Inspection: Yes normal to inspection and No distended Palpation (GI): Soft to palpation, not firm, nontender and No hepatosplenomegaly present Auscultation: normal bowel sounds General: Yes no CVA tenderness Back/Spine/Pelvis Back: no CVA tenderness Skin General skin exam: elasticity normal, turgor normal and dry skin Neuro General: patient oriented x3 Psych Appearance: grossly normal Mental Status: mental status grossly normal Assessment & Plan Assessment & Plan (1) Postprandial epigastric pain: Code(s): R10.13 - Epigastric pain (2) GERD (gastroesophageal reflux disease): Code(s): K21.9 - Gastro-esophageal reflux disease without esophagitis Qualifiers: Esophagitis presence: esophagitis presence not specified Qualified Code(s): K21.9 - Gastro-esophageal reflux disease without esophagitis (3) Dyspepsia: Code(s): R10.13 - Epigastric pain (4) Postprandial diarrhea: Code(s): K52.9 - Noninfective gastroenteritis and colitis, unspecified (5) IBS (irritable bowel syndrome): Code(s): K58.9 - Irritable bowel syndrome without diarrhea Qualifiers: Irritable bowel syndrome type: with diarrhea Qualified Code(s): K58.0 - Irritable bowel syndrome with diarrhea Plan Will send patient for blood work, check thyroid level, transglutaminase to rule out celiac, check for malabsorption, vitamin B12, folate, vitamin-D levels. Patient will stop taking pantoprazole and start taking Nexium in the morning. Patient will start taking sucralfate at bedtime. To help him bulk his stools he can start taking Citrucel daily. Discussed with patient avoiding dietary triggers. List of food recommended and list of to avoid given to him. FODMAP diet discussed with him. Patient eventually will be sent for upper endoscopy and colonoscopy that will be scheduled today, however patient will see me in 4 weeks to re-evaluate improvement in his symptoms. Both patient and his girlfriend are agreeable to his plan and verbalizes understanding of instructions. They were given the opportunity to ask questions and all questions answered. Thank you for allowing me to participate in his care Orders: Orders TSH reflex Free T4 Today K59.00 - Constipation, unspecified H pylori Ag Stool Today K21.9 - Gastro-esophageal reflux disease without esophagitis Transglutaminase Ab IgG Today R10.9 - Unspecified abdominal pain Transglutaminase IgA Today R10.9 - Unspecified abdominal pain Vitamin B12 and Folate Today R19.7 - Diarrhea, unspecified Vitamin D 25-OH (D2 and D3) Today E55.9 - Vitamin D deficiency, unspecified Medications: New esomeprazole magnesium (Nexium) 40 mg PO DAILY 90 caps 5RF K21.9 - Gastro-esophageal reflux disease without esophagitis sucralfate 1 g PO BEDTIME 30 tabs 1RF R19.7 - Diarrhea, unspecified methylcellulose (laxative) (Citrucel) take it with full glass of water 500 mg PO DAILY 90 tabs 2RF K59.00 - Constipation, unspecified Discontinued pantoprazole (Protonix) Discontinued Reason: Doctor's Order 40 mg PO DAILY 30 tabs 0RF Coding Level of Care Code New Pt Level 4 (76425) Diagnoses Postprandial epigastric pain R10.13 Gastroesophageal reflux disease, unspecified whether esophagitis present K21.9 Esophagitis presence: esophagitis presence not specified Dyspepsia R10.13 Postprandial diarrhea K52.9 Irritable bowel syndrome with diarrhea K58.0 Irritable bowel syndrome type: with diarrhea Time Spent (min) 45 Comment 30 minutes spent with patient and additional 15 minutes spent reviewing his records
[2023-12-09 10:39] VITALS: BP 91/57; PULSE 96; BMI 24.4
== END 2023-12-09 11:30 | disposition home or self-care (01) ==
PROVIDERS: Visit Provider Nurse Practitioner Family
DX: K21.9 Gastro-esophageal reflux disease without esophagitis (principal); K58.0 Irritable bowel syndrome with diarrhea
CPT/HCPCS: 99204

== ENCOUNTER 2023-12-09 10:29 | Outpatient (REF) | payer OTHER, SELFPAY ==
[2023-12-09 13:37] LABS: TSH reflex Free T4 0.81 uIU/mL (0.32-4.0)
[2023-12-09 13:49] LABS: Folate 10.9 ng/mL (> or = 4.0); Vitamin B12 319 pg/mL (200-900)
[2023-12-10 20:49] LABS: Transglutaminase Ab IgG <1.0 U/mL; Transglutaminase IgA <1.0 U/mL
[2023-12-13 12:48] LABS: Vitamin D 25-OH, D2 <4 ng/mL; Vitamin D 25-OH, D3 20 ng/mL; Vitamin D 25-OH, Total 20 ng/mL (30-100)
== END 2023-12-09 10:30 | disposition home or self-care (01) ==
LOC: HO.LAB 10:29
PROVIDERS: Visit Provider Nurse Practitioner Family
DX: K58.2 Mixed irritable bowel syndrome (principal); R10.13 Epigastric pain; K21.9 Gastro-esophageal reflux disease without esophagitis; E55.9 Vitamin D deficiency, unspecified
CPT/HCPCS: 36415; 82306; 82607; 82746; 84443; 86364; 99202

== ENCOUNTER 2024-01-18 06:47 | Emergency (ER) | payer OTHER, SELFPAY ==
[2024-01-18 07:00] VITALS: BP 98/65; PULSE 98; RESP 18; TEMP 36.6; O2SAT 98; BMI 26.6
--- NOTE | 2024-01-18 07:39 | ED.ABDPAIN ---
HPI - Abdominal Pain General Chief Complaint: Abdominal Pain Stated Complaint: gen med Time Seen by Provider: 01/18/24 07:17 Source: patient Mode of arrival: ambulatory History of Present Illness HPI narrative: 48-year-old male who comes in with complaints of lower pelvic pain and states that he has a bleeding ulcer, he has missed his scheduled colonoscopy and otherwise denies any fevers, chills, nausea, vomiting. Related Data Previous Rx's Medication Instructions Recorded cyclobenzaprine 5 mg tablet 5 mg PO TID PRN muscle spasm 7 11/26/23 days #21 tabs esomeprazole magnesium 40 mg 40 mg PO DAILY #90 caps 12/09/23 capsule,delayed release (Nexium) methylcellulose (laxative) 500 mg 500 mg PO DAILY #90 tabs 12/09/23 tablet (Citrucel) sucralfate 1 gram tablet 1 g PO BEDTIME #30 tabs 12/09/23 cholecalciferol (vitamin D3) 50 50 mcg PO DAILY #90 caps 12/15/23 mcg (2,000 unit) capsule food supplemt, lactose-reduced 1 ea PO DAILY #2,844 mL 01/01/24 0.06 gram-1.5 kcal/mL oral liquid (Boost Plus) bisacodyl 5 mg tablet,delayed 20 mg (4 x 5 mg) PO ONCE 1 day #4 01/08/24 release (Dulcolax (bisacodyl)) tabs polyethylene glycol 3350 17 238 g PO ONCE 1 day #238 grams 01/08/24 gram/dose oral powder (Miralax) sucralfate 100 mg/mL oral 10 ml PO BID #420 mL 01/18/24 suspension (Carafate) Allergies Allergy/AdvReac Type Severity Reaction Status Date / Time seafood Allergy Hives Verified 01/18/24 07:00 Review of Systems Review of Systems Pertinent positives and negatives as stated in HPI PMFSH Past Medical History Source: nursing notes reviewed Medical History Gastritis Depression Surgical History History of esophagogastroduodenoscopy (EGD) H/O colonoscopy Social History Social History Alcohol intake: current Alcohol intake frequency: a few times a month Alcohol type: beer, wine and hard liquor Smoked in Last 30 Days: Yes Use of substances other than those prescribed or required for medical reasons: No Advance Directives: No Advance Directives Information Provided: No Physical Exam ED Vital Signs: Vital Signs - 24 hr 01/18/24 07:00 Temperature 98 F Pulse Rate 98 Respiratory Rate 18 Blood Pressure 98/65 Pulse Oximetry 98 Oxygen Delivery Method Room Air BMI result Body Mass Index 26.6 VITAL SIGNS: Reviewed. GENERAL: Well developed, well nourished, in no acute distress. HEAD: Normocephalic/atraumatic EYES: PERRLA, EOMI EARS: Ext canals without abnormality NOSE: Nares patent bilateral OROPHARYNX: no oral lesions noted, posterior pharynx clear NECK: Supple, no adenopathy LUNGS: Normal breath sounds. No adventitious sounds or accessory muscle use. SpO2<98> CARDIOVASCULAR: Regular rate and rhythm without noted murmurs ABDOMEN: Soft, non-tender, non-distended with bowel sounds. ANORECTAL: No skin tags, no fissures, no ulcers, soft light brown stool on tip of finger no melena and no gross blood, good rectal tone MUSCULOSKELETAL: No tenderness, deformities, or effusions noted on gross inspection. EXTREMITIES: No cyanosis, clubbing or edema. SKIN: Inspection of the skin reveals no rashes NEUROLOGIC: Alert and oriented x 4. Strength and sensation to light touch were grossly intact x 4. Medical Decision Making Medical Decision Making [facility] Narrative: 48-year-old male with history and clinical presentation, DDX: UTI, gastritis On re-evaluation patient states that he is feeling better after the GI cocktail and Carafate. I reviewed all investigations and hematologic indices are negative for leukocytosis/anemia/thrombocytopenia. Patient remains afebrile. Chemistry and disease are negative for MILA or electrolyte/liver enzyme derangements. Urinalysis negative for UTI or hematuria and stool guaiac is negative. My interpretation is that patient has gastritis, there is no evidence of intra-abdominal infection/UTI/renal colic/GI bleeding. All results discussed with him and he was otherwise discharged with a prescription for Carafate. Differential Diagnosis Differential Diagnoses: The differential diagnosis associated with the presentation includes Please see the discussion above Admission/Observation Consideration of admission/observation: Escalation of care including admission/observation considered Please see the discussion above Lab Data [facility] Lab Attestation statement: I reviewed the patient's lab results. Please see the discussion above 01/18/24 07:48 01/18/24 07:48 Labs: Lab Results 01/18/24 01/18/24 01/18/24 Range/Units 07:43 07:48 07:58 WBC 8.1 (4.8-10.8) X10*3/uL RBC 4.89 (4.60-5.80) X10*6/uL Hgb 15.3 (14.0-18.0) g/dl Hct 45.0 (42.0-52.0) % MCV 92.0 (80.0-98.0) fL MCH 31.3 (27.0-33.0) pg MCHC 34.0 (31.0-36.0) g/dl RDW 13.2 (11.0-16.0) % Plt Count 194 (160-400) X10*3/uL MPV 9.8 (9.4-12.4) fL Immature Gran % (Auto) 0.2 (0.0-0.4) % Neut % (Auto) 75.0 H (45-73) % Lymph % (Auto) 17.7 L (20-40) % [place] % (Auto) 5.8 (2-11) % Eos % (Auto) 0.9 (0-4) % Baso % (Auto) 0.4 (0-2) % Lymph # (Auto) 1.4 (1.2-4.9) X10*3/uL [place] # (Auto) 0.5 (0.1-1.2) X10*3/uL Eos # (Auto) 0.1 (0.0-0.4) X10*3/uL Baso # (Auto) 0.0 (0.0-0.2) X10*3/uL Abs Immat Gran (auto) 0.02 (0.00-0.03) X10*3/uL Absolute Neuts (auto) 6.1 (2.0-8.3) x10*3/uL Absolute Nucleated RBC 0.000 (0.0-0.012) X10*3/uL Nucleated RBC % (auto) 0.0 (0.0-0.2) /100WBC Sodium 142 (135-145) mmol/L Potassium 4.4 (3.3-5.1) mmol/L Chloride 107 (96-108) mmol/L Carbon Dioxide 28 (22-29) mmol/L Anion Gap 11 L (12-20) BUN 13 (9-16) mg/dL Creatinine 0.95 (0.5-1.4) mg/dL Estim Creat Clear Calc 97.1 Estimated GFR > 60 Random Glucose 113 (60-115) mg/dL Calcium 9.4 (8.4-10.2) mg/dL Total Bilirubin 0.2 (0.0-1.0) mg/dL AST 36 (5-37) U/L ALT 41 H (0-40) U/L Alkaline Phosphatase 56 (39-117) U/L Total Protein 6.5 (6.5-8.0) g/dL Albumin 3.8 (3.5-5.0) g/dL Urine Color Yellow Urine Appearance Clear Urine pH 5.5 (5.0-9.0) Ur Specific [place] 1.025 (1.005-1.025) Urine Protein Negative (Neg-Trace) mg/dL Urine Glucose (UA) Negative (Negative) mg/dL Urine Ketones Trace (Negative) mg/dL Urine Blood Negative (Negative) Urine Nitrite Negative (Negative) Ur Leukocyte Esterase Negative (Negative) Stool Occult Blood NEGATIVE (NEGATIVE) External Record Review External record reviewed: Office record, Outpatient record and Prior outpatient labs Medications Administered Discontinued Medications Generic Name Dose Route Start Last Admin Trade Name Freq PRN Reason Stop Dose Admin Al Hydroxide/Mg Hydroxide 30 ml 01/18/24 07:45 01/18/24 07:53 Magnesium Hydrox/Alum Hydrox 30 Ml Oral.Susp PO 01/18/24 07:46 30 ml ONCE ONE Administration Lidocaine HCl 10 ml 01/18/24 07:45 01/18/24 07:53 Lidocaine Hcl Viscous 2 % 15 Ml Solution MUCOUS MEM 01/18/24 07:46 10 ml ONCE ONE Administration Sucralfate 1 gm 01/18/24 07:45 01/18/24 07:53 Sucralfate Oral Suspension 1 Gm/10 Ml Oral.Susp PO 01/18/24 07:46 1 gm ONCE ONE Administration Critical Care Time Critical Care Time Critical Care Time: Yes Total Critical Care Time: 30 Attestation: I personally attest to this time spent taking care of the patient. Discharge Plan Discharge Clinical Impression: Gastritis Patient Disposition: Home, Self-Care Instructions: Gastritis (ED), Diet for Stomach Ulcers and Gastritis (ED) Additional Instructions: 1. Resume all home medications as prescribed. 2. 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 Return to the ER for any worsening symptoms. Prescriptions: New sucralfate [Carafate] 100 mg/mL suspension 10 ml PO BID Qty: 420 0RF No Action cholecalciferol (vitamin D3) 50 mcg (2,000 unit) capsule 50 mcg PO DAILY Qty: 90 3RF Boost Plus 0.06 gram- 1.5 kcal/mL liquid 1 ea PO DAILY Qty: 2844 0RF bisacodyl [Dulcolax (bisacodyl)] 5 mg tablet,delayed release (DR/EC) 20 mg PO ONCE 1 Days Qty: 4 0RF Rx Instructions: take at noon the day before colonoscopy polyethylene glycol 3350 [Miralax] 17 gram/dose powder 238 g PO ONCE 1 Days Qty: 238 0RF Rx Instructions: Take as directed by mouth the day before your procedure. cyclobenzaprine 5 mg tablet 5 mg PO TID PRN (Reason: muscle spasm) 7 Days Qty: 21 0RF esomeprazole magnesium [Nexium] 40 mg capsule,delayed release(DR/EC) 40 mg PO DAILY Qty: 90 5RF sucralfate 1 gram tablet 1 g PO BEDTIME Qty: 30 1RF Citrucel 500 mg tablet 500 mg PO DAILY Qty: 90 2RF Rx Instructions: take it with full glass of water
[2024-01-18 07:52] LABS: MANUAL DIFF FLAG NO
[2024-01-18 07:53] LABS: Basophils Percent Auto 0.4 % (0-2); Eosinophils Absolute Auto 0.1 X10*3/uL (0.0-0.4); Eosinophils Percent Auto 0.9 % (0-4); Hemoglobin 15.3 g/dl (14.0-18.0); Imm Gran Abs Auto 0.02 X10*3/uL (0.00-0.03); Imm Gran Pct Auto 0.2 % (0.0-0.4); Lymphocytes Absolute Auto 1.4 X10*3/uL (1.2-4.9); Lymphocytes Percent Auto 17.7 % (20-40); Mean Corpuscular Hemoglobin 31.3 pg (27.0-33.0); Mean Platelet Volume 9.8 fL (9.4-12.4); Monocytes Absolute Auto 0.5 X10*3/uL (0.1-1.2); Monocytes Percent Auto 5.8 % (2-11); Neutrophils Absolute Auto 6.1 x10*3/uL (2.0-8.3); Platelet Count 194 X10*3/uL (160-400); Red Blood Count 4.89 X10*6/uL (4.60-5.80); Red Cell Distribution Width 13.2 % (11.0-16.0); White Blood Count 8.1 X10*3/uL (4.8-10.8)
[2024-01-18 07:53] LABS: OBS Int Ctl Valid YES; OBS1 NEGATIVE (NEGATIVE)
[2024-01-18] MEDS: Sucralfate Oral Suspension 1 GM/10 ML ORAL.SUSP PO (07:53)
[2024-01-18] MEDS: Lidocaine HCl Viscous 2 % 15 ML SOLUTION 10 ML MUCOUS MEM (07:53)
[2024-01-18] MEDS: Magnesium Hydrox/Alum Hydrox 30 ML ORAL.SUSP PO (07:53)
[2024-01-18 08:05] LABS: Appearance Urine Clear; Color Urine Yellow; Glucose Urine UA Negative (Negative); Leukocyte Esterase Urine Negative (Negative); Nitrite Urine Negative (Negative); PH 5.5 (5.0-9.0); Specific Gravity - Urine 1.025 (1.005-1.025); Urine Blood Negative (Negative); Urine Ketones Trace mg/dL (Negative); Urine Protein Negative (Neg-Trace)
[2024-01-18 08:09] LABS: Alanine Aminotransferase 41 U/L (0-40); Albumin Level 3.8 g/dL (3.5-5.0); Alkaline Phosphatase 56 U/L (39-117); Anion Gap 11 (12-20); Aspartate Amino Transferase 36 U/L (5-37); Bilirubin Total 0.2 mg/dL (0.0-1.0); Blood Urea Nitrogen 13 mg/dL (9-16); Calcium 9.4 mg/dL (8.4-10.2); Carbon Dioxide 28 mmol/L (22-29); Chloride 107 mmol/L (96-108); Creatinine Clr Calc Pharmacy 97.1; Estimated Glomerular Filt Rate > 60; Glucose Random 113 mg/dL (60-115); Potassium 4.4 mmol/L (3.3-5.1); Sodium 142 mmol/L (135-145); Total Protein 6.5 g/dL (6.5-8.0)
== END 2024-01-18 09:20 | disposition home or self-care (01) ==
PROVIDERS: Emergency Provider Student in an Organized Health Care Education/Training Program
DX: K29.70 Gastritis, unspecified, without bleeding (principal); R10.2 Pelvic and perineal pain; Z79.899 Other long term (current) drug therapy
CPT/HCPCS: 36415; 80053; 81003; 82272; 85025; 99283; 99284

== ENCOUNTER 2024-01-26 12:37 | Emergency (ER) | payer OTHER, SELFPAY ==
[2024-01-26 13:33] VITALS: BP 106/70; PULSE 90; RESP 16; TEMP 36.7; O2SAT 94; BMI 23.8
--- NOTE | 2024-01-26 13:34 | ED.GENADULT ---
HPI - General Adult General Chief complaint: Extremity Injury, Lower Stated complaint: r leg pain Time Seen by Provider: 01/26/24 15:04 Source: patient Mode of arrival: ambulatory Limitations: no limitations History of Present Illness HPI narrative: Patient is a 48 year old assigned male at with no reported medical history presenting to the emergency department today with right ankle pain. Patient states that he has had right ankle pain for months that is worse with walking and he is walking a lot lately. Patient states that he would like juice and a sandwich from all of this walking. Patient denies any dizziness, lightheadedness, abdominal pain, nausea, vomiting, fever, chills, blurry vision, double vision, loss of vision, chest pain, difficulty breathing, shortness of breath, back pain, night sweats, pain with urination, increased urinary frequency, increased urinary urgency, blood in his urine or stool, syncope or a near syncopal episode, recent trauma or falls, bowel incontinence, bladder incontinence, bowel retention, bladder retention, or any other complaints at this time. Onset (ago): month(s) Location: right and lower extremity Radiation: non-radiation Severity: mild Severity scale (1-10): 3 Quality: aching Pain Consistency: constant Relieving factors: none Exacerbating factors: none and movement Associated symptoms: denies other symptoms Treatments prior to arrival: none Related Data Previous Rx's Medication Instructions Recorded cyclobenzaprine 5 mg tablet 5 mg PO TID PRN muscle spasm 7 11/26/23 days #21 tabs esomeprazole magnesium 40 mg 40 mg PO DAILY #90 caps 12/09/23 capsule,delayed release (Nexium) methylcellulose (laxative) 500 mg 500 mg PO DAILY #90 tabs 12/09/23 tablet (Citrucel) sucralfate 1 gram tablet 1 g PO BEDTIME #30 tabs 12/09/23 cholecalciferol (vitamin D3) 50 50 mcg PO DAILY #90 caps 12/15/23 mcg (2,000 unit) capsule bisacodyl 5 mg tablet,delayed 20 mg (4 x 5 mg) PO ONCE 1 day #4 01/08/24 release (Dulcolax (bisacodyl)) tabs polyethylene glycol 3350 17 238 g PO ONCE 1 day #238 grams 01/08/24 gram/dose oral powder (Miralax) sucralfate 100 mg/mL oral 10 ml PO BID #420 mL 01/18/24 suspension (Carafate) food supplemt, lactose-reduced 1 ea PO DAILY #2,844 mL 01/27/24 0.06 gram-1.5 kcal/mL oral liquid (Boost Plus) Allergies Allergy/AdvReac Type Severity Reaction Status Date / Time seafood Allergy Hives Verified 01/26/24 13:33 Review of Systems Constitutional: Constitutional: Reports no additional constitutional complaints, Denies chills, Denies fever(s) and Denies night sweats Eyes: Eyes: Reports no additional eye complaints, Denies blurry vision, Denies change in vision, Denies diplopia, Denies eye discharge, Denies loss of vision and Denies eye pain ENT: Denies dizziness Cardiovascular: Cardiovascular: Reports no additional cardiovascular complaints, Denies chest pain, Denies lightheadedness, Denies Loss of Consciousness and Denies dyspnea Respiratory: Respiratory: Reports no additional respiratory complaints and Denies dyspnea Gastrointestinal: Gastrointestinal: Reports no additional gastrointestinal complaints, Denies abdominal pain, Denies melena, Denies hematochezia, Denies change in bowel habits and Denies change in stool character Genitourinary: Genitourinary: Reports no additional male genitourinary complaints, Denies hematuria, Denies oliguria, Denies difficulty urinating, Denies dysuria, Denies urinary frequency, Denies urinary hesitancy, Denies urinary incontinence and Denies urinary urgency Musculoskeletal: Musculoskeletal: Reports no additional musculoskeletal complaints, Denies numbness and Denies tingling Comments: right ankle pain Neurologic: Denies dizziness, Denies loss of vision, Denies numbness and Denies tingling Psychiatric: Psychiatric: Reports no additional psychiatric complaints Endocrine: Endocrine: Reports no additional endocrine complaints Hematologic/Lymphatic: Hematologic/Lymphatic: Reports no additional hematologic/lymphatic complaints Allergic/Immunologic: Allergic/Immunologic: Reports no additional allergic/immunologic complaints PMFSH Past Medical History Attestation statement: The following information was validated with the patient. Source: old records reviewed and nursing notes reviewed Medical History Gastritis Depression Surgical History History of esophagogastroduodenoscopy (EGD) H/O colonoscopy Social History Social History Alcohol intake: current Alcohol intake frequency: a few times a month Alcohol type: beer, wine and hard liquor Physical Exam ED Vital Signs: BMI result Body Mass Index 23.8 Const General: cooperative, no acute distress, alert and awake Nutritional Appearance: well nourished Orientation/consciousness: patient oriented x3 Limitations: no limitations HENMT Head: Yes normal to inspection and Yes atraumatic Ears: hearing grossly normal bilaterally and external ears normal General nose exam: Normal external nose present, no nasal discharge noted and no epistaxis Face and sinus: Yes normal facial exam, No abrasion and No laceration Mouth: Normal oral and palatal mucosa present, no drooling and no muffled voice Eyes General: appearance normal, both eyes and all related structures Periorbital: periorbital findings normal Eyelids: Yes eyelids normal Conjunctivae: conjunctivae normal Pupils: Equal, round and reactive pupils present EOM: EOMs intact bilaterally Neck Neck: Yes normal visual inspection, Yes full ROM and Yes no lymphadenopathy Chest Chest palpation & inspection: normal inspection of the chest Resp Effort & Inspection: normal respiratory effort and able to speak in complete sentences GI Inspection: Yes normal to inspection Neuro General: patient oriented x3 and moves all extremities Cranial nerves: Yes Equal, round and reactive pupils present Cognition (Neuro): normal cognition Motor exam (neuro): 5/5 motor strength present throughout Sensory Exam: Normal double simultaneous stimulation for sensation Coordination: [id number] test normal Extrem General: Yes normal to inspection, Yes full ROM and Yes capillary refill normal Psych Appearance: grossly normal Mental Status: mental status grossly normal Affect: normal affect Attitude: cooperative Thought process: Normal thought process present Thought content: Normal thought content present Insight: Good insight present (Psych) Course Course Course Narrative: RME performed by Arleen Renteria PA-C. Patient is a 48 year old assigned male at presenting to the emergency department with right ankle pain. Detailed physical exam and review of systems are deferred to the mid level clinician. Imaging ordered. Patient placed back in the waiting room pending room availability and results. Medical Decision Making Medical Decision Making MDM Narrative: Patient is a 48 year old assigned male at with no reported medical history presenting to the emergency department today with right ankle pain. Patient's limited physical exam performed in triage was unremarkable. Patient left the department without completing treatment. Patient left the department before myself or any of the other emergency department clinicians could explain to or review with the patient; physical exam findings, need or lack there of for testing, need or lack there of to perform a procedure, need or lack there of for hospital admission / transfer, need or lack there of for prescription medication, treatment options, or a treatment plan. Differential Diagnosis Differential Diagnoses: The differential diagnosis associated with the presentation includes Right ankle pain Right ankle sprain Right ankle strain Arthritis Admission/Observation Consideration of admission/observation: Escalation of care including admission/observation considered Patient would have been admitted to the hospital had his clinical presentation warranted hospital admission, had myself or an emergency geotechnical department manager had the ability to discuss need or lack there of for hospital admission, and the patient hadn't left the department without completing treatment. Discharge Plan Discharge Clinical Impression: Ankle pain Patient Disposition: Left W/O Completing Treatment Prescriptions: No Action cholecalciferol (vitamin D3) 50 mcg (2,000 unit) capsule 50 mcg PO DAILY Qty: 90 3RF bisacodyl [Dulcolax (bisacodyl)] 5 mg tablet,delayed release (DR/EC) 20 mg PO ONCE 1 Days Qty: 4 0RF Rx Instructions: take at noon the day before colonoscopy polyethylene glycol 3350 [Miralax] 17 gram/dose powder 238 g PO ONCE 1 Days Qty: 238 0RF Rx Instructions: Take as directed by mouth the day before your procedure. Boost Plus 0.06 gram- 1.5 kcal/mL liquid 1 ea PO DAILY Qty: 2844 0RF sucralfate [Carafate] 100 mg/mL suspension 10 ml PO BID Qty: 420 0RF cyclobenzaprine 5 mg tablet 5 mg PO TID PRN (Reason: muscle spasm) 7 Days Qty: 21 0RF esomeprazole magnesium [Nexium] 40 mg capsule,delayed release(DR/EC) 40 mg PO DAILY Qty: 90 5RF sucralfate 1 gram tablet 1 g PO BEDTIME Qty: 30 1RF Citrucel 500 mg tablet 500 mg PO DAILY Qty: 90 2RF Rx Instructions: take it with full glass of water Discharge Date/Time: 01/26/24 15:24
== END 2024-01-26 15:24 | disposition left against medical advice (07) ==
PROVIDERS: Emergency Provider Emergency Medicine
DX: M25.571 Pain in right ankle and joints of right foot (principal)
CPT/HCPCS: 99281

== ENCOUNTER 2024-05-19 00:32 | Emergency (ER) | payer MEDICARE, MEDICAID, SELFPAY ==
--- NOTE | ~2024-05-19 | XR_ITS ---
EXAMINATION: XR FINGER, RIGHT CLINICAL INFORMATION: Finger pain and swelling. COMPARISON: None available. TECHNIQUE: Three views of the right second digit. FINDINGS: The bone mineralization is normal. The joint spaces are maintained. No fracture seen. There is soft tissue swelling about the proximal interphalangeal joint of the second digit. No radiopaque foreign body identified. XR/XR finger RT min 2V IMPRESSION: Soft tissue swelling about the proximal interphalangeal joint of the second digit. No radiopaque foreign body identified. No acute osseous abnormality.
[2024-05-19 01:21] VITALS: BP 122/98; PULSE 79; RESP 18; TEMP 36.4; O2SAT 98; BMI 25.8
--- NOTE | 2024-05-19 07:13 | ED.EXTPRO ---
HPI - Extremity Problem General Chief complaint: Extremity Problem Stated complaint: swollen fingers Time Seen by Provider: 05/19/24 07:07 Source: patient Mode of arrival: ambulatory Limitations: no limitations History of Present Illness ED Provider: ROQUE JOYCE Narrative: 48 yo male with PMH of depression and gastritis here with c/o R index finger pain and swelling x 5 days after hyperextending it. No other trauma no IVDA, no redness, no rash, no fevers. In that hand had prior abscess but this is different. MD Complaint: extremity pain and extremity swelling Onset (ago): day(s) (5) Pain Consistency: constant Location: right and other (index finger) Quality: aching Radiation: none Relieving factors: immobilization Exacerbating factors: range of motion and palpation Associated symptoms: denies other symptoms Context: other (hyperextension) Related Data Previous Rx's ?Medication ?Instructions ?Recorded cyclobenzaprine 5 mg tablet 5 mg PO TID PRN muscle spasm 7 11/26/23 days #21 tabs esomeprazole magnesium 40 mg 40 mg PO DAILY #90 caps 12/09/23 capsule,delayed release (Nexium) methylcellulose (laxative) 500 mg 500 mg PO DAILY #90 tabs 12/09/23 tablet (Citrucel) sucralfate 1 gram tablet 1 g PO BEDTIME #30 tabs 12/09/23 cholecalciferol (vitamin D3) 50 50 mcg PO DAILY #90 caps 12/15/23 mcg (2,000 unit) capsule bisacodyl 5 mg tablet,delayed 20 mg (4 x 5 mg) PO ONCE 1 day #4 01/08/24 release (Dulcolax (bisacodyl)) tabs polyethylene glycol 3350 17 238 g PO ONCE 1 day #238 grams 01/08/24 gram/dose oral powder (Miralax) food supplemt, lactose-reduced 1 ea PO DAILY #2,844 mL 01/27/24 0.06 gram-1.5 kcal/mL oral liquid (Boost Plus) sucralfate 100 mg/mL oral 10 ml PO BID #420 mL 02/05/24 suspension (Carafate) hydrocodone 5 mg-acetaminophen 325 1 tab PO Q6H PRN pain #10 tabs 05/19/24 mg tablet Allergies Allergy/AdvReac Type Severity Reaction Status Date / Time seafood Allergy Hives Verified 05/19/24 01:22 Review of Systems Review of Systems: Constitutional : No Fever, No Chills ENT/Mouth : No Ear Pain, No Hoarseness, No sore throat Eyes: No Eye Pain, No Swelling, No Redness, No Foreign Body Cardiovascular : No Chest Pain, No SOB Respiratory : No Cough, No Dyspnea Gastrointestinal : No Nausea, No Vomiting, No Diarrhea, No abdominal Pain Musculoskeletal : positive joint pain, No Myalgias, pos Joint Swelling Skin : No Skin lacerations, No rash Neuro : No Weakness, No Numbness, No Loss of Consciousness, No Dizziness, No Headache All other systems reviewed and are negative [facility] Past Medical History Attestation statement: The following information was validated with the patient. Source: old records reviewed Medical History Gastritis Depression Surgical History History of esophagogastroduodenoscopy (EGD) H/O colonoscopy Social History Social History Alcohol intake: current Alcohol intake frequency: a few times a month Alcohol type: beer, wine and hard liquor Advance Directives: No Advance Directives Information Provided: Yes Do you have a plan to hurt others: No Plan Physical Exam Vital Signs: Vital Signs: Last Vital Signs Temp 97.6 F 05/19/24 01:21 Pulse 79 05/19/24 01:21 Resp 18 05/19/24 01:21 BP 122/98 H 05/19/24 01:21 Pulse Ox 98 05/19/24 01:21 O2 Del Method Room Air 05/19/24 01:21 BMI result Body Mass Index 25.8 Appearance: Alert. Oriented X3. No acute distress. Eyes: Pupils equal, round and reactive to light. ENT: Pharynx normal. Neck: Normal inspection. Neck supple. CVS: Pulses normal. Respiratory: No respiratory distress. Abdomen: Soft and nontender. Skin: Skin warm and dry. Normal skin color. Extremities: No lower extremity edema. R index finger around PIP swelling and ttp but no redness, fluctuance BCR in digit SILT intact - hurts to ROM no rash noted Neuro: Oriented X 3. No motor deficit. No sensory deficit. Medical Decision Making Medical Decision Making MDM Narrative: 48 yo male with depression and gastritis here with traumatic R index finger pain that does not appear infected at this time will obtain xrays and place in splint refer to orthopedics - I did consider starting steroids but he stated he has severe stomach ulcer issues and I do not want to cause any issues - could be gout like picture but will treat with pain medications and splint. There are no current signs of infection Differential Diagnosis Differential Diagnoses: The differential diagnosis associated with the presentation includes sprain, strain, arthropathy, tendon injury Independent Interpretation I performed an independent interpretation of an: Plain X-Ray (no fx) Radiology Impression Discussion of test interpretation with radiology: I have reviewed the radiologist's reading. External Record Review External record reviewed: Office record Prescription Management I considered prescription management with: Pain Medication Discharge Plan Discharge Clinical Impression: Finger pain, right Patient Disposition: Home, Self-Care Instructions: Arthralgia (ED) Additional Instructions: wear splint for the next 5 days follow up with our hand surgeon listed below - call to schedule appointment return for worsening swelling, pain, redness, fevers or any other concerns. Prescriptions: New hydrocodone-acetaminophen 5-325 mg tablet 1 tab PO Q6H PRN (Reason: pain) Qty: 10 0RF Rx Instructions: partial fill okay; Partial Fill upon patient request. No Action cholecalciferol (vitamin D3) 50 mcg (2,000 unit) capsule 50 mcg PO DAILY Qty: 90 3RF bisacodyl [Dulcolax (bisacodyl)] 5 mg tablet,delayed release (DR/EC) 20 mg PO ONCE 1 Days Qty: 4 0RF Rx Instructions: take at noon the day before colonoscopy polyethylene glycol 3350 [Miralax] 17 gram/dose powder 238 g PO ONCE 1 Days Qty: 238 0RF Rx Instructions: Take as directed by mouth the day before your procedure. Boost Plus 0.06 gram- 1.5 kcal/mL liquid 1 ea PO DAILY Qty: 2844 0RF sucralfate [Carafate] 100 mg/mL suspension 10 ml PO BID Qty: 420 0RF cyclobenzaprine 5 mg tablet 5 mg PO TID PRN (Reason: muscle spasm) 7 Days Qty: 21 0RF esomeprazole magnesium [Nexium] 40 mg capsule,delayed release(DR/EC) 40 mg PO DAILY Qty: 90 5RF sucralfate 1 gram tablet 1 g PO BEDTIME Qty: 30 1RF Citrucel 500 mg tablet 500 mg PO DAILY Qty: 90 2RF Rx Instructions: take it with full glass of water Referrals: Asia Todd MD [Physician] - Print Language: Rwandan
[2024-05-19 07:58] VITALS: BP 140/80; PULSE 80; RESP 14; TEMP 36.8; O2SAT 99
== END 2024-05-19 07:59 | disposition home or self-care (01) ==
PROVIDERS: Emergency Provider Emergency Medicine
DX: M79.644 Pain in right finger(s) (principal)
CPT/HCPCS: 73140; 99283

== ENCOUNTER 2024-05-24 12:18 | Emergency (ER) | payer MEDICARE, MEDICAID, SELFPAY ==
[2024-05-24 13:03] VITALS: BP 94/69; PULSE 91; RESP 17; TEMP 36.6; O2SAT 96; BMI 23.6
--- NOTE | 2024-05-24 13:04 | ED.GENADULT ---
HPI - General Adult General Chief complaint: Extremity Problem Stated complaint: finger pain Time Seen by Provider: 05/24/24 14:30 Source: patient Mode of arrival: ambulatory Limitations: no limitations History of Present Illness ED Provider: Russell JOYCE narrative: patient is a 48-year-old right hand dominant male presenting to the emergency department with complaint of pain and swelling to right index finger after hyperextending it accidentally one week ago. Patient was seen in this emergency department for same on 05/19, placed in finger splint and advised to follow-up with orthopedics. Patient states that he has not followed up with Orthopedics because he is unsure if this is a sprain or an abscess. He reports history of abscess to his fingers in the past. Denies fevers, chills, body aches. Denies any discharge or drainage. MD complaint: finger pain and swelling Onset (ago): week(s) Location: right and upper extremity Quality: aching Associated symptoms: denies other symptoms Treatments prior to arrival: splint Related Data Previous Rx's ?Medication ?Instructions ?Recorded cyclobenzaprine 5 mg tablet 5 mg PO TID PRN muscle spasm 7 11/26/23 days #21 tabs esomeprazole magnesium 40 mg 40 mg PO DAILY #90 caps 12/09/23 capsule,delayed release (Nexium) methylcellulose (laxative) 500 mg 500 mg PO DAILY #90 tabs 12/09/23 tablet (Citrucel) sucralfate 1 gram tablet 1 g PO BEDTIME #30 tabs 12/09/23 cholecalciferol (vitamin D3) 50 50 mcg PO DAILY #90 caps 12/15/23 mcg (2,000 unit) capsule bisacodyl 5 mg tablet,delayed 20 mg (4 x 5 mg) PO ONCE 1 day #4 01/08/24 release (Dulcolax (bisacodyl)) tabs polyethylene glycol 3350 17 238 g PO ONCE 1 day #238 grams 01/08/24 gram/dose oral powder (Miralax) food supplemt, lactose-reduced 1 ea PO DAILY #2,844 mL 01/27/24 0.06 gram-1.5 kcal/mL oral liquid (Boost Plus) sucralfate 100 mg/mL oral 10 ml PO BID #420 mL 02/05/24 suspension (Carafate) hydrocodone 5 mg-acetaminophen 325 1 tab PO Q6H PRN pain #10 tabs 05/19/24 mg tablet acetaminophen 500 mg capsule 1,000 mg (2 x 500 mg) PO Q6H PRN 05/24/24 pain #20 caps Allergies Allergy/AdvReac Type Severity Reaction Status Date / Time seafood Allergy Hives Verified 05/24/24 13:06 Review of Systems Review of Systems: As per MDM Yes all other systems are reviewed and are negative Constitutional: Constitutional: Reports as per HPI [facility] Past Medical History Medical History Gastritis Depression Surgical History History of esophagogastroduodenoscopy (EGD) H/O colonoscopy Social History Social History Alcohol intake: current Alcohol intake frequency: a few times a month Alcohol type: beer, wine and hard liquor Advance Directives: No Advance Directives Information Provided: Yes Do you have a plan to hurt others: No Plan Physical Exam ED Vital Signs: Vital Signs - 24 hr 05/24/24 13:03 05/24/24 16:33 Temperature 97.9 F 97.8 F Pulse Rate 91 69 Respiratory Rate 17 16 Blood Pressure 94/69 104/73 Pulse Oximetry 96 99 Oxygen Delivery Method Room Air Room Air BMI result Body Mass Index 23.6 Vital signs have been reviewed and appear to be correct. Blood pressure normal. Heart rate normal. Respiratory rate normal. Temperature normal. Oxygen saturation normal. Const General: cooperative, healthy appearing and no acute distress Orientation/consciousness: oriented to person, oriented to place, oriented to time and patient oriented x3 Limitations: no limitations [facility] Head: Yes normocephalic and Yes atraumatic Ears: external ears normal General nose exam: Normal external nose present Face and sinus: Yes face symmetric Mouth: oropharynx normal and moist mucous membranes Throat: Yes uvula midline Eyes Pupils: Equal, round and reactive pupils present Neck Neck: Yes normal visual inspection and Yes supple Resp Effort & Inspection: normal respiratory effort and able to speak in complete sentences Auscultation: clear to auscultation bilaterally Cardio Rate: regular rate Rhythm: regular rhythm Heart sounds: S1 normal heart sound present and S2 normal heart sound present GI Palpation (GI): Soft to palpation and nontender Auscultation: normoactive bowel sounds General: Yes no CVA tenderness Back/Spine/Pelvis Back: no CVA tenderness Skin General skin exam: elasticity normal and turgor normal Neuro General: oriented to person, oriented to place, oriented to time, patient oriented x3, moves all extremities, no focal motor deficits and CN's II-XI intact bilaterally Cranial nerves: Yes Equal, round and reactive pupils present Cognition (Neuro): normal cognition Extrem General: Yes full ROM, Yes no pedal edema and Yes no calf tenderness Right upper extremity: Extremity exam: right hand (no erythema, warmth or fluctuance to PIP joint) Details: normal capillary refill, neuromotor exam abnormal, neurosensory exam normal, tenderness Location: of the 2nd digit Location: at the PIP joint, normal ROM of fingers and swelling Location: of the 2nd digit Location: at the PIP joint Psych Mental Status: mental status grossly normal Affect: normal affect Thought process: Normal thought process present Course Course Course Narrative: RME performed by Arleen Renteria PA-C. Patient is a 48 year old assigned male at presenting to the emergency department with right index finger pain. Patient states he was seen 5 days ago for right finger pain, got pain medicine and told to see hand surgeon, but he has not seen said hand surgeon. Detailed physical exam and review of systems are deferred to the primary care coordinator. Patient placed back in the waiting room pending room availability. Medications Administered Discontinued Medications Generic Name Dose Route Start Last Admin Trade Name Gageq PRN Reason Stop Dose Admin Acetaminophen 650 mg 05/24/24 16:59 05/24/24 17:07 Acetaminophen 325 Mg Tablet PO 05/24/24 17:00 650 mg ONCE ONE Administration Ibuprofen 600 mg 05/24/24 16:59 05/24/24 17:06 Ibuprofen 600 Mg Tablet PO 05/24/24 17:00 Not Given ONCE ONE Medical Decision Making Medical Decision Making MDM Narrative: patient is a 48-year-old right hand dominant male presenting to the emergency department with complaint of pain and swelling to right index finger after hyperextending it accidentally one week ago. On exam patient is awake, A+Ox3, VS WNL, afebrile, normal neurological exam without focal deficits, physical exam findings as above. Given reported symptoms and physical exam findings, initial differential includes right finger strain, sprain. Do not suspect abscess or cellulitis as no warmth, erythema or fluctuance. Discussed with patient that symptoms are likely due to sprain as no signs of infection on physical exam and patient is in agreement with this. Will provide patient with new finger splint as well as prescription for Tylenol. Will again refer to orthopedics and patient is also agreeable to this. Return precautions discussed at bedside. Patient verbalized understanding of and agreement with plan. Differential Diagnosis Differential Diagnoses: The differential diagnosis associated with the presentation includes As per MDM. External Record Review External record reviewed: Inpatient record, Office record and Outpatient record Prescription Management I considered prescription management with: Pain Medication Discharge Plan Discharge Clinical Impression: Finger sprain Patient Disposition: Home, Self-Care Instructions: Finger Sprain (ED) Additional Instructions: You have been evaluated in the emergency department today for finger pain. Your evaluation did not find evidence of medical conditions requiring emergent intervention at this time and your exam did not show signs of infection. We have provided a splint for you to use while your finger heals. Please rest, ice, and elevate your finger, and resume normal activities as tolerated. We recommend you take 650mg Tylenol every 6 hours as needed for pain. You are again being referred to Orthopedics for further evaluation of your symptoms. Please call their office to schedule an appointment, they will not call you. Return to the emergency department if you experience worsening pain, numbness, tingling, change of color in your finger, or any other concerning symptoms. Prescriptions: New acetaminophen 500 mg capsule 1,000 mg PO Q6H PRN (Reason: pain) Qty: 20 0RF No Action cholecalciferol (vitamin D3) 50 mcg (2,000 unit) capsule 50 mcg PO DAILY Qty: 90 3RF bisacodyl [Dulcolax (bisacodyl)] 5 mg tablet,delayed release (DR/EC) 20 mg PO ONCE 1 Days Qty: 4 0RF Rx Instructions: take at noon the day before colonoscopy polyethylene glycol 3350 [Miralax] 17 gram/dose powder 238 g PO ONCE 1 Days Qty: 238 0RF Rx Instructions: Take as directed by mouth the day before your procedure. Boost Plus 0.06 gram- 1.5 kcal/mL liquid 1 ea PO DAILY Qty: 2844 0RF sucralfate [Carafate] 100 mg/mL suspension 10 ml PO BID Qty: 420 0RF hydrocodone-acetaminophen 5-325 mg tablet 1 tab PO Q6H PRN (Reason: pain) Qty: 10 0RF Rx Instructions: partial fill okay; Partial Fill upon patient request. cyclobenzaprine 5 mg tablet 5 mg PO TID PRN (Reason: muscle spasm) 7 Days Qty: 21 0RF esomeprazole magnesium [Nexium] 40 mg capsule,delayed release(DR/EC) 40 mg PO DAILY Qty: 90 5RF sucralfate 1 gram tablet 1 g PO BEDTIME Qty: 30 1RF Citrucel 500 mg tablet 500 mg PO DAILY Qty: 90 2RF Rx Instructions: take it with full glass of water [place] [facility] [place] [facility] [place] Group] Print Language: Kazakh
[2024-05-24 16:33] VITALS: BP 104/73; PULSE 69; RESP 16; TEMP 36.6; O2SAT 99
[2024-05-24] MEDS: Acetaminophen 325 MG TABLET 650 MG PO (17:07)
[2024-05-24 17:29] VITALS: BP 104/73; PULSE 69; RESP 16; TEMP 36.6; O2SAT 99
== END 2024-05-24 17:30 | disposition home or self-care (01) ==
PROVIDERS: Emergency Provider Student in an Organized Health Care Education/Training Program
DX: S63.610A Unspecified sprain of right index finger, initial encounter (principal); M79.641 Pain in right hand; X58.XXXA Exposure to other specified factors, initial encounter; Y33.XXXA Other specified events, undetermined intent, initial encounter; Y93.89 Activity, other specified; Y92.89 Other specified places as the place of occurrence of the external cause; Y99.8 Other external cause status; Z79.899 Other long term (current) drug therapy
CPT/HCPCS: 29130; 99283; 99284

== ENCOUNTER 2024-05-25 23:37 | Emergency (ER) | payer MEDICARE, MEDICAID, SELFPAY ==
[2024-05-25 23:38] VITALS: BP 108/64; PULSE 85; RESP 18; TEMP 36.7; O2SAT 97; BMI 26.6
--- NOTE | 2024-05-26 02:15 | ED.EXTPRO ---
HPI - Extremity Problem General Chief complaint: Extremity Injury, Lower Stated complaint: right ankle Time Seen by Provider: 05/26/24 02:09 Source: patient Mode of arrival: ambulatory Limitations: no limitations History of Present Illness ED Provider: ROQUE JOYCE Narrative: 48 yo male with chronic R ankle pain new to area wants a cane - no rash, no meds at home. He denies fevers. MD Complaint: joint pain Onset (ago): year(s) Pain Consistency: constant Location: right and other (ankle) Quality: aching Radiation: none Relieving factors: immobilization Exacerbating factors: range of motion, weight bearing, walking and palpation Associated symptoms: denies other symptoms Context: other (chronic ankle pain) Related Data Previous Rx's ?Medication ?Instructions ?Recorded cyclobenzaprine 5 mg tablet 5 mg PO TID PRN muscle spasm 7 11/26/23 days #21 tabs esomeprazole magnesium 40 mg 40 mg PO DAILY #90 caps 12/09/23 capsule,delayed release (Nexium) methylcellulose (laxative) 500 mg 500 mg PO DAILY #90 tabs 12/09/23 tablet (Citrucel) sucralfate 1 gram tablet 1 g PO BEDTIME #30 tabs 12/09/23 cholecalciferol (vitamin D3) 50 50 mcg PO DAILY #90 caps 12/15/23 mcg (2,000 unit) capsule bisacodyl 5 mg tablet,delayed 20 mg (4 x 5 mg) PO ONCE 1 day #4 01/08/24 release (Dulcolax (bisacodyl)) tabs polyethylene glycol 3350 17 238 g PO ONCE 1 day #238 grams 01/08/24 gram/dose oral powder (Miralax) food supplemt, lactose-reduced 1 ea PO DAILY #2,844 mL 01/27/24 0.06 gram-1.5 kcal/mL oral liquid (Boost Plus) sucralfate 100 mg/mL oral 10 ml PO BID #420 mL 02/05/24 suspension (Carafate) hydrocodone 5 mg-acetaminophen 325 1 tab PO Q6H PRN pain #10 tabs 05/19/24 mg tablet acetaminophen 500 mg capsule 1,000 mg (2 x 500 mg) PO Q6H PRN 05/24/24 pain #20 caps cane #1 ea 05/26/24 diclofenac sodium 1 % topical gel 2 g topical QID #100 grams 05/26/24 (Voltaren Arthritis Pain) Allergies Allergy/AdvReac Type Severity Reaction Status Date / Time seafood Allergy Hives Verified 05/25/24 23:41 Review of Systems Review of Systems: Constitutional : No Fever, No Chills ENT/Mouth : No Ear Pain, No Hoarseness, No sore throat Eyes: No Eye Pain, No Swelling, No Redness, No Foreign Body Cardiovascular : No Chest Pain, No SOB Respiratory : No Cough, No Dyspnea Gastrointestinal : No Nausea, No Vomiting, No Diarrhea, No abdominal Pain Genitourinary : No Dysuria, No Hematuria Musculoskeletal : positive joint pain, No Myalgias, No Joint Swelling Skin : No Skin lacerations, No rash Neuro : No Weakness, No Numbness, No Loss of Consciousness, No Dizziness, No Headache All other systems reviewed and are negative [facility] Past Medical History Attestation statement: The following information was validated with the patient. Source: old records reviewed Medical History Gastritis Depression Surgical History History of esophagogastroduodenoscopy (EGD) H/O colonoscopy Social History Social History (Updated 05/26/24 @ 02:17 by Alexandria Diop DO) Alcohol intake: current Alcohol intake frequency: a few times a month Alcohol type: beer, wine and hard liquor Patient Tobacco Use Status: Current someday Tobacco user Physical Exam Vital Signs: Vital Signs: Last Vital Signs Temp 98.0 F 05/25/24 23:38 Pulse 85 05/25/24 23:38 Resp 18 05/25/24 23:38 BP 108/64 05/25/24 23:38 Pulse Ox 97 05/25/24 23:38 O2 Del Method Room Air 05/25/24 23:38 BMI result Body Mass Index 26.6 Appearance: Alert. Oriented X3. No acute distress. Eyes: Pupils equal, round and reactive to light. ENT: Pharynx normal. Neck: Normal inspection. Neck supple. CVS: Normal heart rate and rhythm. Pulses normal. Respiratory: No respiratory distress. Breath sounds normal. Abdomen: Soft and nontender. Skin: Skin warm and dry. Normal skin color. Normal skin turgor. Extremities: No lower extremity edema. pulses intact R ankle no redness, no effusion no warmth reports pain to R lateral and medial malleolus ext appears normal Neuro: Oriented X 3. No motor deficit. No sensory deficit. Medical Decision Making Medical Decision Making [facility] Narrative: 48 yo male with R ankle arthritis here asking for cane - at this time no signs of infection, VS stable, no new trauma it is a normal ankle will start on diclonfec and order cane no signs of trauma, lack of blood flow or infection. Differential Diagnosis Differential Diagnoses: The differential diagnosis associated with the presentation includes arthritis External Record Review External record reviewed: Inpatient record Prescription Management I considered prescription management with: Other Discharge Plan Discharge Clinical Impression: Ankle pain, chronic Qualifiers: Laterality: right Qualified Code(s): M25.571 - Pain in right ankle and joints of right foot Patient Disposition: Home, Self-Care Instructions: Arthralgia (ED) Additional Instructions: return for redness, swelling, fevers follow up with primary care doctor Prescriptions: New diclofenac sodium [Voltaren Arthritis Pain] 1 % gel 2 g topical QID Qty: 100 0RF Rx Instructions: apply to single elbow, wrist or hand; for hand includes palm/fingers/back of hand (DME) cane Device See Rx Instructions .Route Qty: 1 0RF Rx Instructions: As directed No Action cholecalciferol (vitamin D3) 50 mcg (2,000 unit) capsule 50 mcg PO DAILY Qty: 90 3RF bisacodyl [Dulcolax (bisacodyl)] 5 mg tablet,delayed release (DR/EC) 20 mg PO ONCE 1 Days Qty: 4 0RF Rx Instructions: take at noon the day before colonoscopy polyethylene glycol 3350 [Miralax] 17 gram/dose powder 238 g PO ONCE 1 Days Qty: 238 0RF Rx Instructions: Take as directed by mouth the day before your procedure. Boost Plus 0.06 gram- 1.5 kcal/mL liquid 1 ea PO DAILY Qty: 2844 0RF sucralfate [Carafate] 100 mg/mL suspension 10 ml PO BID Qty: 420 0RF hydrocodone-acetaminophen 5-325 mg tablet 1 tab PO Q6H PRN (Reason: pain) Qty: 10 0RF Rx Instructions: partial fill okay; Partial Fill upon patient request. acetaminophen 500 mg capsule 1,000 mg PO Q6H PRN (Reason: pain) Qty: 20 0RF cyclobenzaprine 5 mg tablet 5 mg PO TID PRN (Reason: muscle spasm) 7 Days Qty: 21 0RF esomeprazole magnesium [Nexium] 40 mg capsule,delayed release(DR/EC) 40 mg PO DAILY Qty: 90 5RF sucralfate 1 gram tablet 1 g PO BEDTIME Qty: 30 1RF Citrucel 500 mg tablet 500 mg PO DAILY Qty: 90 2RF Rx Instructions: take it with full glass of water Print Language: Slovenian
[2024-05-26 02:45] VITALS: BP 108/64; PULSE 85; RESP 18; TEMP 36.7; O2SAT 97
== END 2024-05-26 02:46 | disposition home or self-care (01) ==
PROVIDERS: Emergency Provider Emergency Medicine
DX: M25.571 Pain in right ankle and joints of right foot (principal)
CPT/HCPCS: 99283; 99284